=== PATIENT | male | born 1960 | race African-American/Black ===

== ENCOUNTER 2018-05-17 14:06 | Inpatient (IN) | payer MEDICARE, MEDICAID ==
[~2018-05-17 14:06] MED LIST: ISOVUE-370 76%-LOCM 1 ML ONE
[2018-05-17 14:25] LABS: #Basophils 0.1 thou/uL (0.0-0.2); #Lymphocytes 2.6 thou/uL (1.20-3.40); #Monocytes 0.3 thou/uL (0.11-0.59); #Neutrophils 3.4 thou/uL (1.40-6.50); %Eosinophils 0.4 % (0.0-10.0); %Lymphocytes 40.4 % (21.0-51.0); %Monocytes 4.1 % (0.0-10.0); Hemoglobin 13.5 g/dL (14.0-18.0); Mean Corpuscular HGB CONC 30.6 g/dL (32.0-36.0); Mean Corpuscular Hemoglobin 31.5 pg (27.0-31.0); Mean Platelet Volume 9.3 fL (7.4-10.4); Platelet Count 276 thou/uL (130-400); RBC Distribution Width 12.6 % (11.5-14.5); White Blood Cell (WBC) Count 6.3 thou/uL (4.8-10.8)
[2018-05-17 14:36] LABS: Actual Bicarbonate (HCO3a) 24.6 mEq/L (22-28); Analyzer IN Cardio ER; Base Excess (BEa) -2.3 mEq/L (-2.0 to +3.0); CO2 Tension 50.3 mmHg (35.0-45.0); Calcium, Ionized 1.27 mmol/L (1.12-1.30); Carboxyhemoglobin (COHb) 0.4 gm% (0.0-3.0); Hemoglobin (Hb) 14.3 g/dL (14.0-18.0); O2 Tension (PaO2) 93.8 mmHg (80.0-100.0); Potassium - ABG Lab 3.11 mmol/L (3.70-5.30); pH, Arterial 7.31 (7.35-7.45)
[2018-05-17 14:37] LABS: Acetaminophen Less than 6.0 mcg/mL (10.0-30.0); Alcohol Less than 10 mg/dL (Less than 10); Salicylate Less than 8.0 mg/dL (15.0-30.0)
[2018-05-17 14:38] LABS: ALT (SGPT) 96 U/L (8-55); AST (SGOT) 112 U/L (5-34); Albumin 3.6 g/dL (3.5-5.0); Alkaline Phosphatase 124 U/L (40-150); Anion Gap 16 mmol/L (10-20); BUN (Urea Nitrogen) 34 mg/dL (8.4-25.7); Bilirubin, Total 1.8 mg/dL (0.2-1.2); Calc. Creatinine Clearance 0 mL/min (70-130); Calcium 9.3 mg/dL (7.8-10.44); Carbon Dioxide 22 mmol/L (22-29); Chloride 121 mmol/L (98-107); Estimated GFR-MDRD 87; Globulin 4.4 g/dL (2.4-3.5); Glucose 176 mg/dL (70-105); Potassium 3.4 mmol/L (3.5-5.1); Sodium 156 mmol/L (136-145)
[2018-05-17 14:42] LABS: CKMB 1.2 ng/mL (0-6.6); Troponin I Less than 0.010 ng/mL (< 0.028)
[2018-05-17 14:45] LABS: Bilirubin Small (Negative); Blood, Urine Negative (Negative); Clarity CLEAR (Clear); Glucose, Urine (Dipstick) Negative (Negative); Leukocyte Moderate (Negative); Nitrite Positive (Negative); Protein, Urine (Dipstick) Negative (Neg-Trace); Specific Gravity, Urine 1.024 (1.002-1.036)
[2018-05-17 14:49] LABS: Bacteria/HPF 4+ HPF (None Seen); Hyaline Casts/LPF 0-3 HYALINE CAST LPF (0-3 Hyaline); Pathc Cast-AUWi Flag 0.14 (0-2.49); RBC/HPF 0-3 HPF (0-3); Squamous Epithelial 0-3 HPF (0-3)
[2018-05-17 14:50] LABS: ALV-art Gradient 199.825 (0-20); Puncture Site LB
[2018-05-17 15:00] LABS: Amphetamine Not Detected (NotDetected); Barbiturates Screen Not Detected (NotDetected); Benzodiazepine Screen Not Detected (NotDetected); Cocaine Metabolite Screen Not Detected (NotDetected); Medtox Control Line Valid? VALID (VALID); Medtox Reader # READER 4; Methadone Not Detected (NotDetected); Methamphetamine Not Detected (NotDetected); Opiate Screen Not Detected (NotDetected); Oxycodone Screen Not Detected (NotDetected); Phencyclidine (PCP) Not Detected (NotDetected); THC/Cannabinoid Screen Not Detected (NotDetected); Tricyclic Screen Not Detected (NotDetected)
[2018-05-17 15:07] LABS: Transitional Epithelial 0-3 HPF (0-3)
[2018-05-17] MEDS ORDERED: Piperacillin/Tazobactam 4.5 GM VIAL ONE (15:14)
--- NOTE | 2018-05-17 15:23 | RAD ---
1 VIEW CHEST: Date: 05/17/18 COMPARISON: 04/29/18. HISTORY: Agonal respirations. Respiratory failure. FINDINGS: Endotracheal tube terminates just beyond the clavicles. Normal cardiac silhouette. Pulmonary vessels and hilum are normal. Costophrenic angles are clear. No pneumothorax on this supine projection. No os seous abnormalities. IMPRESSION: Endotracheal tube extending just beyond the clavicles. No acute cardiopulmonary process. POS: [facility]
--- NOTE | 2018-05-17 15:50 | RAD ---
CHEST 1 VIEW: Date: 05/17/18 HISTORY: Cough. COMPARISON: Radiograph same date. FINDINGS: The patient is intubated with endotracheal tube tip in a similar location. Enteric tube is in place, which is below the diaphragm, though out of field of view. No pneumothorax. No large effusions. IMPRESSION: Interval placement of enteric tube with tip below diaphragm, although out of field of view. POS: [facility]
[2018-05-17] MEDS ORDERED: Propofol 1,000 MG/100 ML VIAL IV ONE (16:06)
--- NOTE | 2018-05-17 16:19 | CT ---
CONTRAST ENHANCED CTA CHEST: HISTORY: Apneic episode. Tachycardia. TECHNIQUE: A contrast enhanced CTA chest was performed, and 2D and 3D reconstructed images were performed on an independent 3D work station. FINDINGS: Nasogastric tube is in place, coiled within the gastric lumen. The patient has a gastrostomy tube in place. There are diffuse air space opacities, predominantly in the lower lobes, and central lung lesions, as well as in the right upper lobe and right middle lobe, as well as mildly in the left upper lobe. Th david areas are concerning for possible bilateral pneumonia versus pulmonary edema. The patient is intubated. Endotracheal tube is in good position. The right and left bronchi are unr emarkable. IMPRESSION: Diffuse air space opacities, most pronounced in the lung bases. POS: [facility]
--- NOTE | 2018-05-17 16:26 | CT ---
NONCONTRAST HEAD CT: Date: 05/17/18 COMPARISON: 03/04/18. HISTORY: Unresponsive patient. FINDINGS: No parenchymal hemorrhage. No extra-axial hematoma. No midline shift. Basilar cisterns are patent. St able configuration of ventricular system. White matter hypodensities and chronic small vessel ischemi c changes are identified. Stable hypoattenuation involving the right cerebellar hemisphere due to malacic and gliotic change. F indings are similar to the previous examination. Calvarium is intact. Adequate aeration of the sinuses and mastoid air cells. Stable surgical changes in the left orbit. IMPRESSION: No acute intracranial process. POS: [facility]
[2018-05-17] MEDS ORDERED: hydrALAZINE 20 MG/ML VIAL SLOW IVP SCH (16:30)
[2018-05-17] MEDS ORDERED: Ventilator Sedation Protocol 1 EACH FS SCH (18:34)
[2018-05-17] MEDS ORDERED: CCU Electrolyte Replacement 1 EACH FS SCH (18:34)
[2018-05-17] MEDS ORDERED: Fentanyl BOLUS 250 ML IVPB PRN (18:44)
[2018-05-17] MEDS ORDERED: fentaNYL Citrate/PF 2,000 MCG in Sodium Chloride 0.9% 60 ML IV SCH (18:44)
[2018-05-17] MEDS ORDERED: Propofol BOLUS 1,000 MG/100 ML VIAL IV PRN (18:44)
[2018-05-17] MEDS ORDERED: Magnesium 2 GM/NS 0.9% 100 ML 2 GM in Premix Bag 1 BAG IVPB PRN (18:44)
[2018-05-17] MEDS ORDERED: Potassium Phosphate 15 MMOL in Sodium Chloride 0.9% 250 ML 250 ML IV PRN (18:44)
[2018-05-17] MEDS ORDERED: Potassium Chloride 40 MEQ in Premix Bag 1 BAG IVPB PRN (18:44)
[2018-05-17] MEDS ORDERED: CCU ELECTROLYTE REPLACEMENT PROTOCOL FS PRN (18:44)
[2018-05-17] MEDS ORDERED: DISCONTINUE PREVIOUS NARCOTIC PAIN MEDICATIONS AND BENZODIAZEPINES FS SCH (18:44)
[2018-05-17] MEDS ORDERED: Potassium Phosphate 12 MMOL in Sodium Chloride 0.9% 250 ML 250 ML IV PRN (18:44)
[2018-05-17] MEDS ORDERED: Lorazepam 2 MG/ML VIAL SLOW IVP PRN (18:44)
[2018-05-17] MEDS ORDERED: Potassium Chloride 20 MEQ TAB PO PRN (18:44)
[2018-05-17] MEDS ORDERED: Magnesium Oxide 400 MG TAB PO PRN ×2 (18:44)
[2018-05-17] MEDS ORDERED: Potassium Phosphate 9 MMOL in Sodium Chloride 0.9% 100 ML IVPB PRN (18:44)
[2018-05-17] MEDS ORDERED: Potassium Chloride 40 MEQ in Sodium Chloride 0.9% 250 ML 250 ML IVPB PRN (18:44)
[2018-05-17] MEDS ORDERED: Ondansetron PF 4 MG/2 ML Vial IVP PRN (18:46)
[2018-05-17] MEDS ORDERED: Acetaminophen 325 MG TAB PO PRN (18:46)
[2018-05-17] MEDS ORDERED: HYDROcodone/Acetaminophen 5/325 mg Tablet PO PRN ×2 (18:46)
[2018-05-17] MEDS ORDERED: Ondansetron ODT 4 MG TAB SL PRN (18:46)
[2018-05-17] MEDS ORDERED: hydrALAZINE 20 MG/ML VIAL SLOW IVP PRN (18:58)
[2018-05-17] MEDS ORDERED: GENTAMICIN SULFATE IVPB SCH (19:00)
[2018-05-17] MEDS ORDERED: SODIUM CHLORIDE 0.9% IVPB SCH (19:00)
[2018-05-17 19:15] VITALS: BMI 13.7
[2018-05-17] MEDS: Sodium Chloride 0.45% 1,000 ML IV SCH (19:29)
[2018-05-17] MEDS: cefTRIAXone\\ROCEPHIN 2 GM in Sodium Chloride 0.9% 100 ML IVPB SCH (21:05)
[2018-05-17] MEDS: Propofol 1,000 MG/100 ML VIAL IV PRN (23:48)
--- NOTE | 2018-05-18 00:27 | HP ---
DATE OF ADMISSION: 05/17/2018 REASON/CHIEF COMPLAINT: Respiratory distress, not responding well. HISTORY OF PRESENT ILLNESS: Mr. Ge is a 57-year-old -[place] male with past medical history of cerebral hemorrhage, hydrocephalus, dysphagia, has been sick for couple of days ago into the family. The patient has been having some cough, congestion for 2 days and he developed loose stools like watery stools like diarrhea today many times. He has been feeling very weak as well. The patient has not been eating well also for the last few days. He has been taking his medications. He did not complain of any chest pain or nausea or vomiting according to the family, but patient was feeling very weak and lethargic, so patient's family called EMS. EMS found the patient with respiratory distress with possible agonal breathing. He was intubated and brought to the emergency room. In the ER, patient was found to have possible urosepsis. He received Zosyn and vancomycin, received IV fluid bolus as well as hydralazine for hypertension. Currently, patient is intubated and sedated. No history could be obtained from the patient, he is being admitted to CCU. PAST MEDICAL HISTORY: 1. Recent cerebral hemorrhage. 2. History of hydrocephalus. 3. Hypertension. 4. Hyperlipidemia. 5. Chronic anemia. 6. Protein-calorie malnutrition. 7. History of dysphagia, status post PEG tube placement. CURRENT MEDICATIONS: The patient is on mirtazapine 15 mg daily, lisinopril 20 mg b.i.d., Protonix 40 mg daily, hydralazine 50 mg 3 times daily. ALLERGIES: No known drug allergies. FAMILY HISTORY: Nothing of interest. SOCIAL HISTORY: The patient lives with family and no history of smoking. No history of alcohol. REVIEW OF SYSTEMS: Unable to obtain because of mental status. PHYSICAL EXAMINATION: GENERAL: The patient is sedated and intubated. VITAL SIGNS: Temperature 98, pulse 76, blood pressure 150/100 HEENT: Pupils are equal and reactive to light. LUNGS: Air entry present bilaterally. Rhonchi present bilaterally. CARDIAC: S1, S2 regular. ABDOMEN: Soft, no distention, no tenderness. Normal bowel sounds. RECTAL: Deferred. CENTRAL NERVOUS SYSTEM: No focal deficit. LABORATORY DATA AND X-RAY FINDINGS: CBC shows WBC 6.2, hemoglobin 13, hematocrit 44, platelets 276. Metabolic panel: Sodium 156, potassium 3.4, chloride 121, CO2 of 22, BUN 34, creatinine 1, glucose 176. Lactic acid 4.5. Urinalysis revealed wbc 7-10, bacteria 4+. ABG showed a pH of 7.31, pO2 of 93, saturation 96%. IMAGING: Chest x-ray negative. CT of the brain, no acute intracranial process seen. CT chest showed diffuse airspace opacities. EKG showed sinus tachycardia , no acute ST-T wave changes seen. ASSESSMENT: 1. Acute respiratory failure. 2. Possible urosepsis. 3. Hypertension, uncontrolled. 4. Acute metabolic encephalopathy. 5. History of cerebral hemorrhage. 6. History of dysphagia, status post PEG tube placement. 7. Chronic anemia. PLAN: 1. CCU monitoring. 2. Sedation protocol. 3. Ventilator support. 4. Protonix 40 mg IV piggyback daily. 5. Lovenox 40 mg subcutaneous daily. 6. Rocephin 2 grams IV piggyback daily. 7. Vancomycin 1 gram IV piggyback for two hours. 8. Diet n.p.o. 9. Pulmonary consult. 10. Condition: Critical. 11. Prognosis: Guarded. MTDD
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
[2018-05-18] MEDS: Sodium Chloride 0.45% 1,000 ML IV SCH ×3 (01:29→15:13)
[2018-05-18 06:23] LABS: Band 43 % (5-11); Hemoglobin 12.1 g/dL (14.0-18.0); Lymphocytes 8 % (21-51); MDiff Complete? YES; Mean Corpuscular HGB CONC 31.1 g/dL (32.0-36.0); Mean Corpuscular Hemoglobin 31.3 pg (27.0-31.0); Monocytes 3 % (0-10); Neutrophil 46 % (42-75); PLT Morphology Comment Appears Adequate; Platelet Count 180 thou/uL (130-400); RBC Distribution Width 12.8 % (11.5-14.5); Red Blood Cell (RBC) Count 3.85 mill/uL (4.70-6.10); Reflex for Review?? NO
[2018-05-18 06:46] LABS: BUN (Urea Nitrogen) 23 mg/dL (8.4-25.7); Calc. Creatinine Clearance 61 mL/min (70-130); Calcium 8.4 mg/dL (7.8-10.44); Carbon Dioxide 19 mmol/L (22-29); Chloride 119 mmol/L (98-107); Estimated GFR-MDRD Greater than 90; Glucose 124 mg/dL (70-105); Potassium 3.4 mmol/L (3.5-5.1); Sodium 149 mmol/L (136-145)
[2018-05-18 06:52] LABS: Anion Gap 14 mmol/L (10-20)
[2018-05-18 07:45] LABS: Base Excess (BEa) 2.1 mEq/L (-2.0 to +3.0); CO2 Tension 29.2 mmHg (35.0-45.0); Calcium, Ionized 1.12 mmol/L (1.12-1.30); Carboxyhemoglobin (COHb) 0.9 gm% (0.0-3.0); O2 Tension (PaO2) 92.4 mmHg (80.0-100.0); Potassium - ABG Lab 2.95 mmol/L (3.70-5.30); pH, Arterial 7.53 (7.35-7.45)
[2018-05-18 07:46] LABS: Puncture Site RR
--- NOTE | 2018-05-18 09:39 | RAD ---
PORTABLE CHEST: History: Ventilator and ICU follow up. Comparison: 05-17-18 FINDINGS: There are new bibasilar confluent infiltrates compared to yesterday. Heart and mediastinum are unrema rkable. ET and NG tube are unremarkable and unchanged. IMPRESSION: Lower lobe infiltrates seen bilaterally. POS: [facility]
[2018-05-18] MEDS: Pantoprazole 40 MG VIAL IVP SCH (10:06)
[2018-05-18] MEDS: Enoxaparin Sodium 40 MG/0.4 ML SYRINGE SC SCH (10:06)
--- NOTE | 2018-05-18 10:10 | PRG ---
DATE OF SERVICE: 05/18/2018 Thirty-five minutes critical care time. SUBJECTIVE: The patient remains intubated on mechanical ventilation. He will wake up and follow com mands for me. PHYSICAL EXAMINATION: VITAL SIGNS: His temperature is 98.3, pulse 71, blood pressure 149/104. A 24-hour intake 1515 and o utput 585. HEENT EXAM: Remarkable for bitemporal wasting. NECK: No JVD. LUNGS: Clear anteriorly. CARDIOVASCULAR: S1 and S2, regular, without murmur. ABDOMEN: Soft and nontender. EXTREMITIES: No edema. LABORATORY DATA: A pH 7.53, pCO2 of 29, pO2 of 92 on SIMV rate 20, tidal volume 400, PEEP 5, pressur e support 10, FiO2 40%. White blood cell count 14, hematocrit 38.8, platelet count 180. Sodium 149, potassium 3.4, chloride 119, CO2 of 19, BUN 23, creatinine 0.7, glucose 124. Chest x-ray shows bila teral lower lobe infiltrates. ASSESSMENT: 1. Acute respiratory failure, requiring mechanical ventilation. 2. Bilateral pneumonia. 3. Volume contraction. 4. Hypernatremia, secondary to volume contraction. PLAN: 1. Adjust mechanical ventilation rate. 2. Continue IV antibiotics until cultures have resulted. Right now, gram-negative rods are coming f rom his urine. 3. Continue IV fluids.
--- NOTE | 2018-05-18 12:20 | PQF ---
LEXIE TABOR VENKAT R MD [id number] CLINICAL DOCUMENTATION IMPROVEMENT CLARIFICATION FORM: ICD-10 Updated PLEASE DO AN ADDENDUM TO THE PROGRESS NOTE WITH ANY DOCUMENTATION UPDATES OR ADDITIONS AND CARRY THROUGH TO DC SUMMARY. THANK YOU. DATE: 05/18/18 ATTN: DR. BHATTI Please exercise your independent, professional judgment in responding to the clarification form. Clinical indicators are provided on the bottom of this form for your review Please check appropriate box(es): [ ] Severe sepsis with acute organ dysfunction of: acute respiratory failure, acute metabolic encephalopathy [ ] Sepsis due to: UTI [ ] Sepsis due to pneumonia [ ] Sepsis due to [ ] Localized infection without sepsis [ ] Other diagnosis [ y] Unable to determine In addition, please specify: Present on Admission (POA): [ y ] Yes [ ] No [ ] Unable to determine For continuity of documentation, please document condition throughout progress notes and discharge summary. Thank You. CLINICAL INDICATORS - SIGNS / SYMPTOMS / LABS LACTIC ACID 4.5 05/17 LAB WBC 14 05/18 LAB AMS-H&P: ACUTE RESP FAILURE, POSSIBLE UROSEPSIS. HTN UNCONTROLLED. ACUTE METABOLIC ENCEPHALOPATHY GRAM NEG RODS URINE 05/18 PULM NOTE UA 05/17 MOD LEUKEST, WBC 7-10, POSITIVE NITRATES, 4+ BACTERIA PER LAB PULSE 130 05/17 VS RISK FACTORS POSSIBLE UROSEPSIS H&P BILATERAL PNEUMONIA 05/18 PULM NOTE TREATMENTS: CCU ADMIT ORDERS DAILY CBC 05/17 TO DATE ORDERS URINE CULTURE 05/17 ORDERS PULM CONSULT 05/17 ORDERS VANC AND ROCEPHIN IV 05/17 IVFS 2 LITERS NS BOLUS IN ED THEN IVFS TO 1/2 NS AT 150 05/17 (This form is maintained as a part of the permanent medical record) 2014 [employer]. All Rights Reserved Jeanette Trujillo, RN, BSN, CCDS [email or web address] [phone] [facility]
[2018-05-18] MEDS: Propofol 1,000 MG/100 ML VIAL IV PRN (15:11)
[2018-05-18] MEDS ORDERED: Vancomycin HCl 750 MG in Sodium Chloride 0.9% 250 ML 250 ML IVPB SCH (16:00)
[2018-05-18] MEDS ORDERED: Pancrelipase DR 12000 1 CAP FS PRN (17:19)
[2018-05-18] MEDS ORDERED: Sodium Bicarbonate Tab 325 MG TAB PER TUBE PRN (17:19)
[2018-05-18] MEDS: cefTRIAXone\\ROCEPHIN 2 GM in Sodium Chloride 0.9% 100 ML IVPB SCH (20:51)
[2018-05-19] MEDS: Sodium Chloride 0.45% 1,000 ML IV SCH ×4 (00:38→20:37)
[2018-05-19 04:18] LABS: #Basophils 0.1 thou/uL (0.0-0.2); #Lymphocytes 1.8 thou/uL (1.20-3.40); #Monocytes 0.5 thou/uL (0.11-0.59); #Neutrophils 11.9 thou/uL (1.40-6.50); %Basophils 0.4 % (0.0-1.0); %Eosinophils 0.3 % (0.0-10.0); %Lymphocytes 12.6 % (21.0-51.0); %Monocytes 3.3 % (0.0-10.0); %Neutrophils 83.4 % (42.0-75.0); Hemoglobin 10.9 g/dL (14.0-18.0); Mean Corpuscular HGB CONC 31.7 g/dL (32.0-36.0); Mean Corpuscular Hemoglobin 31.5 pg (27.0-31.0); Mean Corpuscular Volume 99.3 fL (78.0-98.0); Mean Platelet Volume 9.5 fL (7.4-10.4); Platelet Count 157 thou/uL (130-400); RBC Distribution Width 12.5 % (11.5-14.5); Red Blood Cell (RBC) Count 3.45 mill/uL (4.70-6.10); White Blood Cell (WBC) Count 14.2 thou/uL (4.8-10.8)
[2018-05-19 04:37] LABS: Anion Gap 9 mmol/L (10-20); BUN (Urea Nitrogen) 19 mg/dL (8.4-25.7); Calc. Creatinine Clearance 63 mL/min (70-130); Calcium 8.6 mg/dL (7.8-10.44); Carbon Dioxide 24 mmol/L (22-29); Chloride 112 mmol/L (98-107); Estimated GFR-MDRD Greater than 90; Glucose 88 mg/dL (70-105); Sodium 142 mmol/L (136-145)
[2018-05-19 04:42] LABS: Potassium 2.9 mmol/L (3.5-5.1)
[2018-05-19 06:20] LABS: Actual Bicarbonate (HCO3a) 21.7 mEq/L (22-28); Base Excess (BEa) -2.8 mEq/L (-2.0 to +3.0); CO2 Tension 36.6 mmHg (35.0-45.0); Carboxyhemoglobin (COHb) 0.5 gm% (0.0-3.0); Hemoglobin (Hb) 11.4 g/dL (14.0-18.0); O2 Tension (PaO2) 152.5 mmHg (80.0-100.0); Potassium - ABG Lab 3.68 mmol/L (3.70-5.30); pH, Arterial 7.39 (7.35-7.45)
[2018-05-19 06:22] LABS: Puncture Site RRA
--- NOTE | 2018-05-19 08:06 | PRG ---
DATE OF SERVICE: 05/19/2018 Thirty-five minutes critical care time. The patient remains intubated on mechanical ventilation. There have been no changes in his condition overnight. PHYSICAL EXAMINATION: VITAL SIGNS: His temperature is 98.8, pulse 82, blood pressure 163/109, 24 hour intake 4114, output 1020. HEENT: Pupils react. Sclerae icteric. Oropharynx clear. NECK: No JVD. LUNGS: Fairly clear. CARDIAC: S1 and S2 regular. ABDOMEN: Soft. PEG tube noted. EXTREMITIES: Severe muscle wasting. LABORATORY DATA: White blood cell count 14.2, hematocrit 34.3, platelet count 157, pH 7.39, pCO2 36, pO2 150 on SIMV rate 12, tidal volume 400, PEEP 5, pressure support 10, FiO2 40%. Sodium 142, potas sium 2.9, chloride 112, CO2 24, BUN 19, creatinine 0.7, glucose 88. Urine culture showed Citrobacter koseri, it is sensitive to the ceftriaxone. ASSESSMENT: 1. Urosepsis secondary to Citrobacter. 2. Acute respiratory failure requiring mechanical ventilation. 3. Bilateral pneumonia. 4. Volume contraction. 5. Hypokalemia. PLAN: 1. Replace potassium. 2. Spontaneous breathing trial. 3. Minimize sedation with hopeful extubation later today.
--- NOTE | 2018-05-19 08:58 | RAD ---
AP VIEW CHEST: HISTORY: Ventilator-dependent patient. FINDINGS: AP view chest obtained on 05/19/2018. Comparison is made to a previous exam from 05/18/2018. AP view chest demonstrates nasogastric and endotracheal tubes to be in place. Bilateral lung base airspace opacities seen, worse in the right lung base than on the left. These ap pear to be slightly less pronounced than on the previous day's exam. No evidence of pneumothorax is seen. IMPRESSION: Continued bibasilar airspace opacity slightly improved since the previous exam. Endotracheal and erik ogastric tubes are in good position. POS: [facility]
[2018-05-19] MEDS: Pantoprazole 40 MG VIAL IVP SCH (09:56)
[2018-05-19] MEDS: Enoxaparin Sodium 40 MG/0.4 ML SYRINGE SC SCH (09:56)
[2018-05-19 10:33] LABS: Potassium 3.4 mmol/L (3.5-5.1)
[2018-05-19] MEDS: hydrALAZINE 25 MG TAB PER TUBE SCH (20:36)
[2018-05-19] MEDS: cefTRIAXone\\ROCEPHIN 2 GM in Sodium Chloride 0.9% 100 ML IVPB SCH (20:37)
[2018-05-19] MEDS ORDERED: Acetaminophen 650 MG/20.3 ML UDCUP PER TUBE PRN (20:58)
[2018-05-20 05:09] LABS: #Lymphocytes 1.2 thou/uL (1.20-3.40); #Monocytes 0.4 thou/uL (0.11-0.59); #Neutrophils 6.9 thou/uL (1.40-6.50); %Eosinophils 0.3 % (0.0-10.0); %Lymphocytes 14.2 % (21.0-51.0); %Neutrophils 80.5 % (42.0-75.0); Hemoglobin 11.4 g/dL (14.0-18.0); Mean Corpuscular HGB CONC 31.8 g/dL (32.0-36.0); Mean Corpuscular Hemoglobin 31.2 pg (27.0-31.0); Mean Corpuscular Volume 98.2 fL (78.0-98.0); Mean Platelet Volume 9.6 fL (7.4-10.4); Platelet Count 137 thou/uL (130-400); RBC Distribution Width 12.4 % (11.5-14.5); Red Blood Cell (RBC) Count 3.65 mill/uL (4.70-6.10); White Blood Cell (WBC) Count 8.6 thou/uL (4.8-10.8)
[2018-05-20] MEDS: Sodium Chloride 0.45% 1,000 ML IV SCH ×2 (05:16→08:53)
[2018-05-20 05:43] LABS: Anion Gap 8 mmol/L (10-20); BUN (Urea Nitrogen) 13 mg/dL (8.4-25.7); Calc. Creatinine Clearance 68 mL/min (70-130); Calcium 8.5 mg/dL (7.8-10.44); Carbon Dioxide 28 mmol/L (22-29); Chloride 111 mmol/L (98-107); Estimated GFR-MDRD Greater than 90; Glucose 95 mg/dL (70-105); Magnesium 1.5 mg/dL (1.6-2.6); Phosphorus 2.2 mg/dL (2.3-4.7); Potassium 3.6 mmol/L (3.5-5.1); Sodium 143 mmol/L (136-145)
--- NOTE | 2018-05-20 07:54 | PRG ---
DATE OF SERVICE: 05/20/2018 Mr. Ge was successfully extubated yesterday. He has had no acute problems overnight. PHYSICAL EXAMINATION: VITAL SIGNS: Temperature 97.5, pulse 89, blood pressure 149/99. 24 hour intake 4835, output 4965. HEENT: Unremarkable. NECK: No adenopathy, JVD, or bruits. LUNGS: Clear. CARDIOVASCULAR: S1, S2 regular. ABDOMEN: Soft, nontender. PEG tube noted. EXTREMITIES: No edema. LABORATORY DATA: Sodium 143, potassium 3.6, chloride 111, CO2 28, BUN 13, creatinine 0.6, glucose 95 . White blood cell count 8.6, hematocrit 35.8, platelet count 137. ASSESSMENT: 1. Urosepsis. 2. Status post acute respiratory failure requiring mechanical ventilation. 3. Protein calorie malnutrition. 4. Hypernatremia, which is improved. PLAN: The patient can be transferred out to the medical floor for further antibiotic therapy. He is receiving tube feeds. I will go ahead and stop his IV fluids.
[2018-05-20] MEDS: Pantoprazole 40 MG VIAL IVP SCH (08:45)
[2018-05-20] MEDS: Enoxaparin Sodium 40 MG/0.4 ML SYRINGE SC SCH (08:45)
[2018-05-20] MEDS: hydrALAZINE 25 MG TAB PER TUBE SCH ×2 (08:45→20:11)
--- NOTE | 2018-05-20 09:47 | PQF ---
CLINICAL DOCUMENTATION IMPROVEMENT CLARIFICATION FORM: ICD-10 Updated PLEASE DO AN ADDENDUM TO THE PROGRESS NOTE WITH ANY DOCUMENTATION UPDATES OR ADDITIONS AND CARRY THROUGH TO DC SUMMARY. THANK YOU. Date: 05/20 ATTN : DR. Bertram BHATTI Please exercise your independent, professional judgment in responding to the clarification form. 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 ASSESSMENT 05/18: SEVERE MUSCLE WASTING NOTED: MALNUTRITION, PATIENT LIKELY MEETING LESS THAN NEEDS FOR MONTHS & BMI 13.7; INABILITY TO CONSUME SUFFICIENT ENERGY RISK FACTORS: HX MALNUTRITION PEG TUBE TREATMENT: MUSICAL INSTRUMENT MECHANIC ASSESSMENT Moderate Malnutrition (in acute illness) Energy Intake: <75% of estimated energy requirement for > 7 days Weight Loss: 1-2%/1 week; 5%/ 1 month; 7.5%/3 months Other: mild body fat loss; mild muscle mass loss; mild fluid accumulation; Severe Malnutrition (in acute illness) Energy Intake: < 50% of estimated energy requirement for > 5 days Weight Loss: >1-2%/1 week; >5%/1 month; >7.5%/3 months Other: moderate body fat loss; moderate muscle mass loss; moderate- severe fluid accumulation; 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 Leticia (This form is maintained as a part of the permanent medical record) 2014 [employer]. All Rights Reserved Leticia Ttae RN, BSN [email or web address] Office: [phone] [facility]
--- NOTE | 2018-05-20 11:02 | RAD ---
PORTABLE CHEST: HISTORY: Respiratory distress. COMPARISON: Prior day's exam. FINDINGS: Endotracheal and NG tubes have been removed. The parenchymal changes in the right base are similar t o the prior examination. There are also changes in the left base, which may be slightly worsened, as compared to the prior exam. IMPRESSION: Bibasilar lung changes. Some of the changes in the left base appear slightly increased. POS: [facility]
[2018-05-20] MEDS ORDERED: Senokot 8.6 MG TAB PER TUBE PRN (19:07)
[2018-05-20] MEDS: cefTRIAXone\\ROCEPHIN 2 GM in Sodium Chloride 0.9% 100 ML IVPB SCH (20:10)
[2018-05-21 06:25] LABS: Anion Gap 10 mmol/L (10-20); BUN (Urea Nitrogen) 12 mg/dL (8.4-25.7); Calc. Creatinine Clearance 79 mL/min (70-130); Calcium 8.4 mg/dL (7.8-10.44); Carbon Dioxide 26 mmol/L (22-29); Chloride 108 mmol/L (98-107); Estimated GFR-MDRD Greater than 90; Glucose 98 mg/dL (70-105); Potassium 3.4 mmol/L (3.5-5.1); Sodium 141 mmol/L (136-145)
[2018-05-21] MEDS: Pantoprazole 40 MG GRANULES PACKET PER TUBE SCH (08:35)
[2018-05-21] MEDS: Cyanocobalamin (Vitamin B-12) 1,000 MCG TAB PER TUBE SCH (08:35)
[2018-05-21] MEDS: hydrALAZINE 25 MG TAB PER TUBE SCH ×2 (08:35→19:50)
[2018-05-21] MEDS: Enoxaparin Sodium 40 MG/0.4 ML SYRINGE SC SCH (08:36)
--- NOTE | 2018-05-21 11:21 | PRG ---
DATE OF SERVICE: 05/21/2018 Mr. Ge is talkative. He seems to be doing well, he had no complaints. PHYSICAL EXAMINATION: VITAL SIGNS: Temperature 98.0, pulse 102, respirations 18, O2 sat 96% on room air, blood pressure 14 0/86. HEENT: Unremarkable. CHEST: Clear. CARDIAC: S1, S2 regular. ABDOMEN: Soft. EXTREMITIES: No edema. LABORATORY DATA: Sodium 141, potassium 3.4, BUN 12, creatinine 0.5, glucose 98. ASSESSMENT: 1. Urosepsis. 2. Status post acute respiratory failure. 3. Stable pulmonary status. PLAN: Continuing antibiotic therapy. Hopefully, he can go back home soon.
[2018-05-21] MEDS: cefTRIAXone\\ROCEPHIN 2 GM in Sodium Chloride 0.9% 100 ML IVPB SCH (19:49)
[2018-05-22] MEDS: hydrALAZINE 25 MG TAB PER TUBE SCH ×2 (08:31→20:16)
[2018-05-22] MEDS: Pantoprazole 40 MG GRANULES PACKET PER TUBE SCH (08:32)
[2018-05-22] MEDS: Cyanocobalamin (Vitamin B-12) 1,000 MCG TAB PER TUBE SCH (08:32)
[2018-05-22] MEDS: Enoxaparin Sodium 40 MG/0.4 ML SYRINGE SC SCH (08:32)
--- NOTE | 2018-05-22 11:53 | PRG ---
DATE OF SERVICE: 05/22/2018 SUBJECTIVE: The patient states that he is doing well. He had no complaints. PHYSICAL EXAMINATION: VITAL SIGNS: Temperature is 97.7, pulse 92, blood pressure 168/114, O2 sat 97%. HEENT: Unremarkable. NECK: No JVD. LUNGS: Fairly clear. CARDIAC: S1 and S2, regular. ABDOMEN: Soft. EXTREMITIES: No edema. ASSESSMENT: 1. Status post acute respiratory failure. 2. Urosepsis, which appears to be improving. PLAN: I think the patient could go back to the longterm on antibiotics through his feeding tube. I think he can be discharged as soon as today. No further pulmonary recommendations. Please recal l if further assistance needed.
--- NOTE | 2018-05-22 16:57 | PRG ---
DATE OF SERVICE: 05/22/2018 Mr. Ge is a 57-year-old black male with known history of status post cerebrovascular accident and initially admitted on May 17, 2018 due to respiratory distress. He has been evaluated and manag ed by Pulmonary. He is much improved from his respiratory failure. In addition, he has urosepsis an d is also clinically much improved. This afternoon, he voices no new complaints. He is somewhat dys arthric. He denies any chest pain or shortness of breath. He is here with his sister. PHYSICAL EXAMINATION: VITAL SIGNS: Blood pressure is 168/114, heart rate 92, respiratory rate 16, temperature 97. GENERAL: Noted to be awake, alert, comfortable, not in distress. SKIN: Adequate turgor. HEENT: Pinkish conjunctivae, anicteric sclerae. NECK: No neck mass, no carotid bruits, no JVD. CHEST: No deformities. LUNGS: Clear breath sounds. HEART: Normal sinus rhythm. No murmur, no gallops. No rub. ABDOMEN: Globular, soft. Positive for PEG tube. EXTREMITIES: No edema. NEUROLOGIC: Dysarthric, decreased motor strength. MEDICATIONS: 05/22/2018 was reviewed. LABORATORY DATA: On 05/20/2018. White count 8.6, hemoglobin 11.4, sodium 141, potassium 3.4. On . Sodium 141, potassium 3.4, chloride 108, carbon dioxide 26, BUN 12, creatinine 0.57, calci um 8.4. ASSESSMENT AND PLAN: 1. Status post acute respiratory failure, much improved. Pulmonary following. 2. Urinary tract infection/urosepsis - on IV antibiotics. Clinically resolving. 3. Status post cerebrovascular accident. Continue supportive care. 4. Mild hypokalemia. We will recheck potassium in a.m. 5. Hypertension, not in good control. We will increase hydralazine to 50 mg t.i.d. Recheck base met and CBC in a.m. in patient.
[2018-05-22] MEDS: cefTRIAXone\\ROCEPHIN 2 GM in Sodium Chloride 0.9% 100 ML IVPB SCH (20:16)
[2018-05-23 06:47] LABS: #Lymphocytes 1.1 thou/uL (1.20-3.40); #Monocytes 0.3 thou/uL (0.11-0.59); #Neutrophils 1.3 thou/uL (1.40-6.50); %Basophils 0.6 % (0.0-1.0); %Eosinophils 1.3 % (0.0-10.0); %Lymphocytes 40.1 % (21.0-51.0); %Monocytes 11.8 % (0.0-10.0); %Neutrophils 46.2 % (42.0-75.0); Mean Corpuscular HGB CONC 32.3 g/dL (32.0-36.0); Mean Corpuscular Hemoglobin 31.6 pg (27.0-31.0); Mean Corpuscular Volume 97.8 fL (78.0-98.0); Mean Platelet Volume 9.6 fL (7.4-10.4); Platelet Count 216 thou/uL (130-400); RBC Distribution Width 12.2 % (11.5-14.5); Red Blood Cell (RBC) Count 3.81 mill/uL (4.70-6.10); White Blood Cell (WBC) Count 2.8 thou/uL (4.8-10.8)
[2018-05-23 08:21] LABS: Chloride 107 mmol/L (98-107); Potassium 3.8 mmol/L (3.5-5.1); Sodium 141 mmol/L (136-145)
[2018-05-23 08:22] LABS: Calcium 9.1 mg/dL (7.8-10.44); Glucose 110 mg/dL (70-105)
[2018-05-23 08:24] LABS: Anion Gap 11 mmol/L (10-20); Carbon Dioxide 27 mmol/L (22-29)
[2018-05-23 08:25] LABS: Calc. Creatinine Clearance 72 mL/min (70-130); Estimated GFR-MDRD Greater than 90
[2018-05-23 08:26] LABS: BUN (Urea Nitrogen) 14 mg/dL (8.4-25.7)
[2018-05-23] MEDS: Cyanocobalamin (Vitamin B-12) 1,000 MCG TAB PER TUBE SCH (09:04)
[2018-05-23] MEDS: hydrALAZINE 25 MG TAB PER TUBE SCH ×3 (09:04→23:47)
[2018-05-23] MEDS: Enoxaparin Sodium 40 MG/0.4 ML SYRINGE SC SCH (09:04)
[2018-05-23] MEDS: Pantoprazole 40 MG GRANULES PACKET PER TUBE SCH (09:04)
[2018-05-23] MEDS: cefTRIAXone\\ROCEPHIN 2 GM in Sodium Chloride 0.9% 100 ML IVPB SCH (20:38)
[2018-05-24] MEDS: Pantoprazole 40 MG GRANULES PACKET PER TUBE SCH (08:18)
[2018-05-24] MEDS: hydrALAZINE 25 MG TAB PER TUBE SCH ×3 (08:18→21:02)
[2018-05-24] MEDS: Cyanocobalamin (Vitamin B-12) 1,000 MCG TAB PER TUBE SCH (08:19)
[2018-05-24] MEDS: Enoxaparin Sodium 40 MG/0.4 ML SYRINGE SC SCH (08:19)
[2018-05-25 05:20] LABS: Anion Gap 10 mmol/L (10-20); BUN (Urea Nitrogen) 14 mg/dL (8.4-25.7); Calc. Creatinine Clearance 69 mL/min (70-130); Carbon Dioxide 26 mmol/L (22-29); Chloride 107 mmol/L (98-107); Estimated GFR-MDRD Greater than 90; Glucose 107 mg/dL (70-105); Potassium 4.2 mmol/L (3.5-5.1); Sodium 139 mmol/L (136-145)
[2018-05-25 05:25] LABS: Band 5 % (5-11); Hemoglobin 12.1 g/dL (14.0-18.0); Lymphocytes 39 % (21-51); MDiff Complete? YES; Mean Corpuscular HGB CONC 32.5 g/dL (32.0-36.0); Mean Corpuscular Hemoglobin 31.7 pg (27.0-31.0); Mean Corpuscular Volume 97.4 fL (78.0-98.0); Monocytes 15 % (0-10); Neutrophil 39 % (42-75); Platelet Count 249 thou/uL (130-400); RBC Distribution Width 12.1 % (11.5-14.5); Reactive Lymphocytes 2 % (0-10); Red Blood Cell (RBC) Count 3.82 mill/uL (4.70-6.10); White Blood Cell (WBC) Count 3.3 thou/uL (4.8-10.8)
[2018-05-25 07:31] VITALS: BP 142/86; TEMP 98.5
[2018-05-25] MEDS: hydrALAZINE 25 MG TAB PER TUBE SCH (09:00)
[2018-05-25] MEDS ORDERED: Lisinopril 10 MG TAB PER TUBE SCH (09:00)
[2018-05-25] MEDS: Pantoprazole 40 MG GRANULES PACKET PER TUBE SCH (09:00)
[2018-05-25] MEDS: Enoxaparin Sodium 40 MG/0.4 ML SYRINGE SC SCH (09:00)
[2018-05-25] MEDS ORDERED: Tamsulosin HCl 0.4 MG CAP FS SCH (09:00)
[2018-05-25] MEDS: Cyanocobalamin (Vitamin B-12) 1,000 MCG TAB PER TUBE SCH (09:00)
--- NOTE | 2018-05-26 11:23 | DIS ---
DATE OF ADMISSION: 05/17/2018 DATE OF DISCHARGE: 05/25/2018 ADMITTING DIAGNOSES: 1. Acute respiratory failure. 2. Urosepsis. 3. Bilateral pneumonia. 4. Uncontrolled hypertension. 5. Acute metabolic encephalopathy. 6. History of cerebral hemorrhage. 7. History of dysphagia, status post percutaneous endoscopic gastrostomy. 8. Chronic anemia. FINAL DIAGNOSES: 1. Acute respiratory failure, improved. 2. Urosepsis. 3. Acute metabolic encephalopathy, improved. 4. Pneumonia. 5. Protein-calorie malnutrition. 6. Acute kidney injury. 7. Severe hypokalemia, improved. 8. History of cerebral hemorrhage. 9. Dysphagia, status post PEG. BRIEF SUMMARY OF HOSPITAL COURSE: Mr. Ge is a 57-year-old -Stateless male admitted because of respiratory failure, the patient was unresponsive. He was intubated and put on ventilator and admitted to CCU. He had urosepsis and also possible pneumonia. Consultation done with Critical Care, Pulmonary. Patient was seen by Dr. Boykin. His impression was respiratory failure and volume contraction for urosepsis and pneumonia. Patient will monitor in the ICU on ventilator support and given antibiotics and fluids. Patient's blood pressure improved and he was extubated after 3 days. Patient tolerated extubation very well. He was continued on IV antibiotics and continued on tube feeding as well and patient was stable. He was transferred out of ICU to the medical floor, where he was started on physical therapy and continued on tube feeding, continued on the IV antibiotics as well. Patient was unable to ambulate, so he was evaluated for the correction home, where he could have rehab. He is being discharged. At the time of discharge, he was stable. His vital signs were stable. Lungs clear. Heart sounds regular. Abdomen soft, nontender. Bowel sounds present. DISCHARGE MEDICATIONS: Include Symbicort 1 tablet b.i.d., MiraLax 17 g daily, Protonix 40 mg daily, lisinopril 20 mg daily, hydralazine 50 mg t.i.d., folic acid 1 mg daily, vitamin B12 daily, 100 mcg, Flomax 0.4 mg daily, Tylenol p.r.n., DuoNebs q.i.d. p.r.n., levofloxacin 750 daily for 7 days, Slow Mag 400 mg b.i.d., pancrelipase daily, sodium bicarbonate 650 mg daily p.r.n. [facility] and continue tube feeding. MTDD
== END 2018-05-25 13:47 | DRG 208 ==
LOC: EDBD 14:06 → ERS 14:06 → CCU 18:26 → T4-B 05-20 13:08
PROVIDERS: ADMIT Internal Medicine; ATTEND Internal Medicine
PROC: 5A1945Z Respiratory Ventilation, 24-96 Consecutive Hours (ICD-10-PCS; principal; 2018-05-17)
DX: J96.00 Acute respiratory failure, unspecified whether with hypoxia or hypercapnia (principal); G93.41 Metabolic encephalopathy; J18.9 Pneumonia, unspecified organism; N39.0 Urinary tract infection, site not specified; E87.0 Hyperosmolality and hypernatremia; E44.0 Moderate protein-calorie malnutrition; Z68.1 Body mass index [BMI] 19.9 or less, adult; I10 Essential (primary) hypertension; E87.6 Hypokalemia; E11.9 Type 2 diabetes mellitus without complications; J44.9 Chronic obstructive pulmonary disease, unspecified; G80.9 Cerebral palsy, unspecified
CPT/HCPCS: 36415; 36416; 51702; 70450; 71045; 71275; 80048; 80053; 80306; 80307; 81003; 81015; 82553; 82805; 83605; 83735; 84100; 84484; 85025; 87040; 87077; 87086; 87186; 90471; 90686; 93005; 94003; 94640; 96360; 96361; 96365; 96367; 96375; C9113; G0008; G8978-GP-CM; G8979-GP-CL; G8996-GN-CM; G8997-GN-CL; J0360; J0696; J1580; J1650; J2543; J2704; J3370; J7050; J7620

== ENCOUNTER 2018-06-11 17:07 | Inpatient (IN) | payer MEDICARE, MEDICAID ==
[2018-06-11 18:02] LABS: #Lymphocytes 0.9 thou/uL (1.20-3.40); #Monocytes 0.3 thou/uL (0.11-0.59); #Neutrophils 1.4 thou/uL (1.40-6.50); %Basophils 1.7 % (0.0-1.0); %Eosinophils 0.3 % (0.0-10.0); %Lymphocytes 32.8 % (21.0-51.0); %Monocytes 11.1 % (0.0-10.0); %Neutrophils 54.1 % (42.0-75.0); Hemoglobin 12.7 g/dL (14.0-18.0); Mean Corpuscular HGB CONC 31.6 g/dL (32.0-36.0); Mean Corpuscular Hemoglobin 30.9 pg (27.0-31.0); Mean Corpuscular Volume 97.9 fL (78.0-98.0); Platelet Count 210 thou/uL (130-400); RBC Distribution Width 12.4 % (11.5-14.5); Red Blood Cell (RBC) Count 4.11 mill/uL (4.70-6.10); White Blood Cell (WBC) Count 2.6 thou/uL (4.8-10.8)
[2018-06-11 18:19] LABS: ALT (SGPT) 56 U/L (8-55); AST (SGOT) 68 U/L (5-34); Albumin 3.5 g/dL (3.5-5.0); Alkaline Phosphatase 123 U/L (40-150); Anion Gap 15 mmol/L (10-20); BUN (Urea Nitrogen) 16 mg/dL (8.4-25.7); Bilirubin, Total 1.5 mg/dL (0.2-1.2); Calc. Creatinine Clearance 0 mL/min (70-130); Calcium 9.4 mg/dL (7.8-10.44); Carbon Dioxide 22 mmol/L (22-29); Chloride 98 mmol/L (98-107); Estimated GFR-MDRD Greater than 90; Globulin 3.8 g/dL (2.4-3.5); Glucose 130 mg/dL (70-105); Potassium 4.3 mmol/L (3.5-5.1); Protein, Total 7.3 g/dL (6.0-8.3); Sodium 131 mmol/L (136-145)
[2018-06-11 19:05] LABS: Bilirubin Negative (Negative); Blood, Urine Moderate (Negative); Clarity CLOUDY (Clear); Glucose, Urine (Dipstick) Negative (Negative); Leukocyte Trace (Negative); Nitrite Negative (Negative); Protein, Urine (Dipstick) Trace mg/dL (Neg-Trace); Specific Gravity, Urine 1.015 (1.002-1.036)
[2018-06-11 19:07] LABS: Bacteria/HPF None Seen HPF (None Seen); Hyaline Casts/LPF 7-10 HYALINE CAST LPF (0-3 Hyaline); Pathc Cast-AUWi Flag 2.18 (0-2.49); RBC/HPF GREATER THAN 50-TNTC HPF (0-3); Squamous Epithelial 0-3 HPF (0-3); WBC/HPF 0-3 HPF (0-3)
[2018-06-11 19:12] LABS: Renal Epithelial None Seen HPF (0-3); Transitional Epithelial 0-3 HPF (0-3)
[2018-06-11 19:16] LABS: CKMB 2.4 ng/mL (0-6.6); Troponin I Less than 0.010 ng/mL (< 0.028)
--- NOTE | 2018-06-11 20:59 | CT ---
HEAD CT WITHOUT CONTRAST: 06/11/2018 HISTORY: Chest pain and altered mental status. COMPARISON: 06/17/2018 TECHNIQUE: Serial axial CT imaging at 5 mm intervals, from the vertex through the skull base, without contrast. FINDINGS: There is encephalomalacia/volume loss involving the inferior aspect of the right cerebellar hemispher e, stable, suggesting prior insult/infarction. There is periventricular and deep white matter hypode nsity, suggesting small vessel disease, stable as well. There is no intracranial hemorrhage, midline shift, or mass effect. Incompletely imaged postoperative mesh is seen associated with the orbit on the left. The imaged par anasal sinuses and mastoid air cells are well aerated. No displaced calvarial fracture. IMPRESSION: Stable head CT, as detailed above. POS: [facility]
[2018-06-11] MEDS ORDERED: Aspirin 325 MG TAB ONE (21:20)
--- NOTE | 2018-06-11 21:23 | RAD ---
PORTABLE CHEST ONE VIEW: 06/11/18 at 8:26 p.m. HISTORY: Chest pain. FINDINGS: Comparison is made with exam of 05/20/18. The heart size is normal. The lungs are well expanded without focal areas of consolidation, pneumotho races or pleural effusions. IMPRESSION: No radiographic evidence of acute cardiopulmonary process. POS: [facility]
[2018-06-11] MEDS ORDERED: Aspirin 300 MG Suppository ONE (21:36)
[2018-06-11 22:49] LABS: Troponin I Less than 0.010 ng/mL (< 0.028)
[2018-06-11] MEDS ORDERED: Ondansetron PF 4 MG/2 ML Vial IVP PRN (23:39)
[2018-06-11] MEDS ORDERED: Ondansetron ODT 4 MG TAB SL PRN (23:39)
[2018-06-12 02:03] LABS: Troponin I Less than 0.010 ng/mL (< 0.028)
[2018-06-12] MEDS ORDERED: hydrALAZINE 20 MG/ML VIAL SLOW IVP PRN (09:47)
[2018-06-12] MEDS: Dextrose 5 %-0.45 % NaCl 1,000 ML IV SCH (12:15)
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
--- NOTE | 2018-06-12 20:34 | HP ---
DATE OF ADMISSION: 06/12/2018 REASON FOR ADMISSION AND CHIEF COMPLAINT: Seizure episode. HISTORY OF PRESENT ILLNESS: Mr. Ge is a 57-year-old -[place] male with past medical history of cerebral hemorrhage, CVA, and dysphagia, status post PEG without any episode of seizure. According to the family, patient had a seizure lasting about 20 minutes and the patient was stiff after seizure episode and difficulty responding. Also complained of some sharp pain in the chest, so family brought to the emergency room because of some questionable seizure episode. In the ER, the patient was evaluated. He had normal EKG and cardiac enzymes and his CT scan of the brain was unremarkable. So, the patient is given aspirin and admitted for further evaluation of his seizure episode as well as his chest pain. PAST MEDICAL HISTORY: 1. Cerebral hemorrhage. 2. History of hydrocephalus. 3. Hypertension. 4. Hyperlipidemia. 5. Chronic anemia. 6. Protein calorie malnutrition. 7. History of respiratory failure due to pneumonia, urosepsis. 8. History of dysphagia, status post PEG tube placement. CURRENT MEDICATIONS: The patient is on lisinopril 20 mg daily, DuoNebs q.i.d., folic acid daily, ferrous sulfate daily, vitamin B12 daily, Tylenol p.r.n., Flomax 0.4 mg b.i.d., sodium bicarbonate daily, MiraLax daily 17 grams, Protonix 40 mg daily, hydralazine 50 t.i.d. ALLERGIES: No known drug allergies. FAMILY HISTORY: Nothing of interest. SOCIAL HISTORY: The patient lives at home. No history of smoking. No history of alcohol intake. REVIEW OF SYSTEMS: Cardiovascular: No shortness of breath, has some sharp pain , no diaphoresis. Respiratory: No fever or cough. Gastrointestinal: No nausea, vomiting, abdominal pain. Genitourinary: No dysuria or hematuria. Central Nervous System: No headache. PHYSICAL EXAMINATION: GENERAL: The patient is alert, awake, oriented x2. VITAL SIGNS: Temperature 98, pulse 79, respirations 20, blood pressure 120/60. HEENT: Head is normocephalic, atraumatic. Pupils equal and reactive to light. Nasopharynx is pale and dry. Hard and soft palate, no lesions seen. SKIN: Skin turgor decreased. NECK: Supple. No JVD. LUNGS: Breath sounds diminished bilaterally. Percussion not dull bilaterally. No rales, no rhonchi. CARDIAC: S1, S2 regular. ABDOMEN: Soft, no distention, no tenderness. PEG tube in place. CENTRAL NERVOUS SYSTEM: No new deficits. LABORATORY AND X-RAY FINDINGS: CBC shows WBC 2.6, hemoglobin 12, hematocrit 40 , platelets 210. Metabolic panel: Sodium 130, chloride 98, CO2 of 22, BUN 16, creatinine 0.8, glucose 130, AST 68, ALT 56. CK-MB 2.4, troponin I less than 0.010. Urinalysis negative. Chest x-ray negative. CT of the brain, no acute changes seen. EKG shows normal sinus rhythm, no acute ST-T wave changes seen. ASSESSMENT: 1. Seizure episode. 2. PEG tube is clogged. 3. History of cerebral hemorrhage. 4. Protein calorie malnutrition. 5. Anemia. 6. Dysphagia status post PEG tube. PLAN: 1. Vital signs q.4 hours. 2. Activity: As tolerated. 3. Allergies: NKDA. 4. IV fluids D51/2 NS80 mL per hour. 5. Diet: N.p.o. 6. GI consult. 7. EEG. 8. Neuro [facility]. [facility]
[2018-06-12] MEDS: Pantoprazole 40 MG VIAL IVP SCH (21:43)
[2018-06-13] MEDS: Dextrose 5 %-0.45 % NaCl 1,000 ML IV SCH ×2 (02:19→11:12)
[2018-06-13] MEDS ORDERED: CEFAZOLIN 2 GM/50 ML BAG ONE (09:41)
[2018-06-13] MEDS ORDERED: PROPOFOL 200 MG/20 ML VIAL ONE (13:01)
[2018-06-13] MEDS ORDERED: Lidocaine 1% PF 5 ML VIAL ONE (13:01)
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
--- NOTE | 2018-06-13 22:17 | OP ---
DATE OF SURGERY: 06/13/2018 OPERATIVE PROCEDURE: Esophagogastroduodenoscopy with endoscopic gastrostomy tube placed. PREOPERATIVE DIAGNOSES: 1. Severe cerebrovascular accident, dysphagia. 2. Clot G-tube. PROCEDURE NOTE: The patient was placed on his back and was given sedation by Anesthesia Department. No antibiotics were given, as it was definitely same port as before to replace the G-tube. A Pentax video gastroscope under direct vision passed over the oropharynx, past the GE junction into stomach and subsequently into descending duodenum. No pathology seen. The esophagus, stomach, and duodenum, no lesions seen. The previously placed G-tube was identified. It was somewhat difficult to remove it, but because to remove it. After the G-tube was removed, a guidewire was advanced into the stomach through the same port. It was grasped with polypectomy snare and pulled outside of the mouth . To the end of guidewire protruding outside of the mouth, a gastrostomy tube was connected. The wi re was pulled back retrograde and the tube left in place. The patient rescoped again. There were no complications noted. The stomach decompressed and the scope removed. RECOMMENDATION: May start tube feeding today at 30 mL per hour and may increase it to 55-60 mL hopef ully by tomorrow. Also he has a lot of flush.
[2018-06-14] MEDS: Pantoprazole 40 MG VIAL IVP SCH ×2 (00:02→22:09)
[2018-06-14] MEDS: Dextrose 5 %-0.45 % NaCl 1,000 ML IV SCH ×2 (03:01→17:01)
[2018-06-14] MEDS ORDERED: Haloperidol Lactate 5 MG/ML VIAL IM PRN (04:08)
[2018-06-14 15:47] VITALS: BMI 13.6
--- NOTE | 2018-06-14 17:53 | RAD ---
CONTRAST UPPER GASTROINTESTINAL RADIOGRAPH: Clinical history: Placement of enteric catheter, evaluation for placement location. FINDINGS: A precontrast and subsequent post contrast abdominal radiographic view reveals a coiled catheter in t he left upper quadrant with subsequent contrast opacification of nondistended gastric lumen. There is moderate retained fecal material of the colon. Punctate scattered densities likely related t o retained fecal material. IMPRESSION: Contrast enhancement within gastric lumen, status post injection via indwelling left upper quadrant c atheter. POS: BRENTON
[2018-06-15] MEDS: Dextrose 5 %-0.45 % NaCl 1,000 ML IV SCH (06:09)
--- NOTE | 2018-06-15 08:39 | EEG ---
Referring Physician: MAGY EEG # [id number] TEST TYPE: ROUTINE PORTABLE INPATIENT REPORT: AN EEG USING THE INTERNATIONAL TEN-TWENTY SYSTEM OF ELECTRODE PLACEMENT WAS PERFORMED. The waking background is a 9 hertz alpha frequency. The patent remained awake throughout the study. Photic stimulation was unremarkable. No epileptiform features were seen. IMPRESSION: THIS IS A NORMAL AWAKE EEG. Consumer Science Teacher: DRAKE Preschool Aide: [email or web address] APPIAH
[2018-06-15] MEDS ORDERED: Lidocaine 1% PF 5 ML VIAL ONE (14:50)
[2018-06-15] MEDS ORDERED: Labetalol HCl 100 MG/20 ML VIAL ONE (14:50)
[2018-06-15] MEDS ORDERED: PROPOFOL 200 MG/20 ML VIAL ONE (14:50)
--- NOTE | 2018-06-15 15:47 | PQF ---
CLINICAL DOCUMENTATION IMPROVEMENT CLARIFICATION FORM: ICD-10 Updated PLEASE DO AN ADDENDUM TO THE PROGRESS NOTE WITH ANY DOCUMENTATION UPDATES OR ADDITIONS AND CARRY THROUGH TO DC SUMMARY. THANK YOU. DATE: 06/15/18 ATTN: Dr. Cm Please exercise your independent, professional judgment in responding to the clarification form. Clinical indicators are provided on the bottom of this form for your review Please check appropriate box(s): ___y____ I (concur) with the Observation Nursing Assessment findings as stated below. [ ] Pressure Ulcer: (Stage I: Erythema; Stage II: Partial thickness; Stage III : Full thickness; Stage IV: Necrosis to muscle/bone) [ ] Location: Stage (I to IV): (Left Right____Bilateral___N/A____) [ ] Location: Stage (I to IV): ____ (Left Right____Bilateral____N/A____) [ ] No pressure ulcer diagnosis [ ] Other diagnosis [ ] Unable to determine In addition, please specify: Present on Admission (POA): [ y ] Yes [ ] No [ ] Unable to determine For continuity of documentation, please document condition throughout progress notes and discharge summary. Thank You. CLINICAL INDICATORS - SIGNS / SYMPTOMS / LABS Observation Nursing Assessment 06/12 @ 0330: Saccrococcygeal pressure ulcer. Stage I RISKS: H&P: Hx of cerebral hemorrhage. Protein calorie malnutrition. Dysphagia status post peg tube TREATMENT: Skin interventions per Nursing protocol: Position changes: Q2h in bed Skin kept from excessive moisture Pre-ulcer skin changes limited to persistent focal edema (Stage 1) Abrasion, blister, partial thickness skin loss involving epidermis and/or dermis (Stage 2) Full thickness skin loss involving damage or necrosis of SQ tissue. (Stage 3) Necrosis of soft tissue through to underlying muscle, tendon, or bone. (Stage 4) Purple or maroon discolored skin or blood filled blister Thank you, Funmilayo (This form is maintained as a part of the permanent medical record) 2015 [employer] All Rights Reserved Funmilayo Cleary RN, [email or web address] Office: [phone] [facility] HOSPITALOlamide
[2018-06-15] MEDS ORDERED: CEFAZOLIN 2 GM/50 ML BAG ONE (18:31)
[2018-06-15] MEDS ORDERED: hydrALAZINE 20 MG/ML VIAL ONE (20:02)
[2018-06-16] MEDS: Pantoprazole 40 MG VIAL IVP SCH (02:20)
[2018-06-16] MEDS: Dextrose 5 %-0.45 % NaCl 1,000 ML IV SCH ×2 (02:20→18:00)
[2018-06-16] MEDS ORDERED: cloNIDine 0.1 MG TAB PER TUBE PRN (08:52)
[2018-06-16] MEDS ORDERED: Acetaminophen 650 MG/20.3 ML UDCUP PER TUBE PRN (08:52)
--- NOTE | 2018-06-16 08:53 | OP ---
DATE OF PROCEDURE: 06/15/2018 OPERATIVE PROCEDURE: Attempted replacement of G-tube at bedside. PREOPERATIVE DIAGNOSIS: Dysphagia, status post cerebrovascular accident. The patient had a PEG tube placed on this past Thursday, and he has pulled it out yesterday. An attemp t was made to replace the G-tube at bedside. The patient had a temporary Rowe catheter placed last night. This was removed easily. Attempt to replace the catheter site with a 22-Nigerian gastrostomy t ube could not be done. I did insert a Rowe catheter easily into the stomach, and the balloon was br ought up the gastrostomy opening . Dilation done one more time. An attempt was made to replace the G-tube 22-Nigerian size. This was not successful. Another attempt was made with a 20-Nigerian G-tu be, and again, I could not advance into the stomach. The procedure was terminated. We will plan to take the patient to the endoscopy later on today and do an EGD and place a G-tube at a different loca tion to prevent the patient pulling it out again.
[2018-06-16] MEDS ORDERED: Pancrelipase DR 12000 1 CAP PER TUBE PRN (08:59)
[2018-06-16] MEDS ORDERED: Pantoprazole 40 MG GRANULES PACKET PER TUBE SCH (09:00)
[2018-06-16] MEDS ORDERED: Lisinopril 20 MG TAB PER TUBE SCH (09:00)
[2018-06-16] MEDS ORDERED: Cyanocobalamin (Vitamin B-12) 1,000 MCG TAB PER TUBE SCH (09:00)
[2018-06-16] MEDS ORDERED: levETIRAcetam 500 mg/5 ml Oral Solution PER TUBE SCH (09:00)
[2018-06-16] MEDS ORDERED: Folic Acid 1 MG TAB PER TUBE SCH (09:00)
[2018-06-16] MEDS ORDERED: Sodium Bicarbonate Tab 325 MG TAB PER TUBE PRN (09:02)
--- NOTE | 2018-06-16 09:13 | OP ---
DATE OF SURGERY: 06/15/2018 SURGEON: Luis Carlos Antonio M.D. OPERATIVE PROCEDURE: Esophagogastroduodenoscopy with endoscopic gastrostomy tube placement. PREOPERATIVE DIAGNOSES: Dysphagia, status post cerebrovascular accident. PROCEDURE NOTE: The patient was placed on his back and was given sedation by Anesthesia Department. The patient also given IV Ancef 2 grams prophylaxis before the procedure. A bite block was placed. A Pentax video gastroscope under direct vision was passed down to the oropharynx, past the GE juncti on into the stomach and subsequently into descending duodenum. There is no pathology seen. The prev iously placed G-tube site was identified. Replaced the G-tube in a different location because patien t kept pulling the G-tube out. The previous G-tube site dressing applied from outside. The gastrost uriah tube site was marked light transillumination within and also by finger pressure in abdomen. The site was cleaned and surgically prepped. The site was anesthetized with 1% Xylocaine infiltration. Over the site, a size-16 Angiocath was advanced into the stomach. Through the Angiocath, a guidewire was fed into the stomach. This was grasped with polypectomy snare and pulled outside of the mouth. On the right side of wire entry, a 0.5 to 0.75 cm size incision was made. To the end of guidewire p ulling outside of the mouth, a gastrostomy tube connected. The placed by pulling out of the mo uth. The dressing applied and also the feeding port connected. RECOMMENDATIONS: 1. Hold the feeding at 11:30 today. 2. G-tube with water at 11:30 and start tube feeding later on today.
[2018-06-16] MEDS: hydrALAZINE 25 MG TAB PER TUBE SCH ×2 (10:47→14:25)
[2018-06-16 16:30] VITALS: BP 138/98; TEMP 98.1
[2018-06-16] MEDS ORDERED: Tamsulosin HCl 0.4 MG CAP PO SCH (21:00)
[2018-06-16] MEDS ORDERED: Senokot 8.6 MG TAB PER TUBE SCH (21:00)
[2018-06-17] MEDS ORDERED: Polyethylene Glycol 3350 17 GM Packet PER TUBE SCH (09:00)
== END 2018-06-16 18:16 | DRG 101 ==
LOC: ERS 17:07 → 2SE 23:30 → OBSVTOIN 06-12 11:34
PROVIDERS: ADMIT Internal Medicine; ATTEND Internal Medicine
PROC: 0D20XUZ Change Feeding Device in Upper Intestinal Tract, External Approach (ICD-10-PCS; principal; 2018-06-13)
PROC: 0DH63UZ Insertion of Feeding Device into Stomach, Percutaneous Approach (ICD-10-PCS; 2018-06-15)
DX: G40.909 Epilepsy, unspecified, not intractable, without status epilepticus (principal); K94.23 Gastrostomy malfunction; G81.94 Hemiplegia, unspecified affecting left nondominant side; E46 Unspecified protein-calorie malnutrition; Z68.1 Body mass index [BMI] 19.9 or less, adult; R13.10 Dysphagia, unspecified; L89.151 Pressure ulcer of sacral region, stage 1; J44.9 Chronic obstructive pulmonary disease, unspecified; S06.9X0S Unspecified intracranial injury without loss of consciousness, sequela; G93.89 Other specified disorders of brain; R07.9 Chest pain, unspecified; I10 Essential (primary) hypertension; D64.89 Other specified anemias; E78.5 Hyperlipidemia, unspecified; Z79.899 Other long term (current) drug therapy; Z87.891 Personal history of nicotine dependence
CPT/HCPCS: 36415; 51701; 70450; 71045; 74018; 80053; 81003; 81015; 82550; 82553; 84146; 84484; 85025; 87324; 87449; 93005; 94640; 95816; 95819; C9113; J0360; J1630; J1953; J2001; J2704

== ENCOUNTER 2018-07-07 18:03 | Emergency (ER) | payer MEDICARE, MEDICAID ==
[2018-07-07] MEDS ORDERED: Piperacillin/Tazobactam 4.5 GM VIAL ONE (18:51)
[2018-07-07 19:02] LABS: #Lymphocytes 0.7 thou/uL (1.20-3.40); #Monocytes 0.2 thou/uL (0.11-0.59); #Neutrophils 1.4 thou/uL (1.40-6.50); %Basophils 1.3 % (0.0-1.0); %Eosinophils 0.2 % (0.0-10.0); %Lymphocytes 30.9 % (21.0-51.0); %Monocytes 9.5 % (0.0-10.0); %Neutrophils 58.1 % (42.0-75.0); Hemoglobin 11.1 g/dL (14.0-18.0); Mean Corpuscular HGB CONC 31.2 g/dL (32.0-36.0); Mean Corpuscular Hemoglobin 31.1 pg (27.0-31.0); Mean Corpuscular Volume 99.6 fL (78.0-98.0); Mean Platelet Volume 9.5 fL (7.4-10.4); Platelet Count 153 thou/uL (130-400); RBC Distribution Width 12.6 % (11.5-14.5); Red Blood Cell (RBC) Count 3.56 mill/uL (4.70-6.10); White Blood Cell (WBC) Count 2.4 thou/uL (4.8-10.8)
--- NOTE | 2018-07-07 19:09 | RAD ---
FRONTAL RADIOGRAPH CHEST: 07/07/18 COMPARISON: 06/11/18. HISTORY: Seizure, cough. FINDINGS: No pneumothorax, pleural fluid, focal consolidation, or alveolar edema. Gastrostomy tube overlies the left upper quadrant. Heart and mediastinal contours stable. Mild increased linear interstitial densi ty is noted. IMPRESSION: No focal consolidation or alveolar edema. POS: ELADIO
[2018-07-07 19:38] LABS: Bilirubin Negative (Negative); Blood, Urine Negative (Negative); Clarity TURBID (Clear); Glucose, Urine (Dipstick) Negative (Negative); Leukocyte Negative (Negative); Nitrite Negative (Negative); Protein, Urine (Dipstick) Trace mg/dL (Neg-Trace); Specific Gravity, Urine 1.012 (1.002-1.036); pH, Urine 8.5 (5.0-9.0)
[2018-07-07 19:50] LABS: ALT (SGPT) 53 U/L (8-55); AST (SGOT) 64 U/L (5-34); Albumin 3.1 g/dL (3.5-5.0); Alkaline Phosphatase 156 U/L (40-150); Anion Gap 13 mmol/L (10-20); BUN (Urea Nitrogen) 13 mg/dL (8.4-25.7); Bilirubin, Total 1.4 mg/dL (0.2-1.2); Calc. Creatinine Clearance 0 mL/min (70-130); Calcium 8.9 mg/dL (7.8-10.44); Carbon Dioxide 24 mmol/L (22-29); Chloride 105 mmol/L (98-107); Estimated GFR-MDRD Greater than 90; Globulin 4.1 g/dL (2.4-3.5); Glucose 96 mg/dL (70-105); Potassium 3.5 mmol/L (3.5-5.1); Protein, Total 7.2 g/dL (6.0-8.3); Sodium 138 mmol/L (136-145)
[2018-07-07] MEDS ORDERED: Fosphenytoin Sodium 100 mg/2 ml Vial ONE (21:09)
[2018-07-07] MEDS ORDERED: Fosphenytoin Sodium 500 mg/10 ml Vial ONE (21:09)
[2018-07-07] MEDS ORDERED: Sodium Chloride 0.9% 0 ML ONE (21:09)
[2018-07-07] MEDS ORDERED: SODIUM CHLORIDE 0.9% IVPB SCH (21:45)
[2018-07-07] MEDS ORDERED: FOSPHENYTOIN SODIUM IVPB SCH (21:45)
--- NOTE | 2018-07-08 14:27 | EKG ---
Test Reason : SEIZURE Blood Pressure : / mmHG Vent. Rate : 102 BPM Atrial Rate : 102 BPM P-R Int : 118 ms QRS Dur : 064 ms QT Int : 344 ms P-R-T Axes : 088 056 -40 degrees QTc Int : 448 ms Sinus tachycardia Possible Left atrial enlargement Anteroseptal infarct , age undetermined Abnormal ECG Confirmed by KRISTEN MAYFIELD, JIM España ([id number]), acquisition editor JULIOCESAR GARBER ([id number]) on 07/08/2018 2:26:45 PM Referred By: Confirmed By:JIM PETERSON MD
== END 2018-07-07 23:23 ==
LOC: ERS 18:03
DX: R56.9 Unspecified convulsions (principal); E11.9 Type 2 diabetes mellitus without complications; J44.9 Chronic obstructive pulmonary disease, unspecified; Z87.891 Personal history of nicotine dependence; Z79.899 Other long term (current) drug therapy
CPT/HCPCS: 36415; 51701; 71045; 80053; 81003; 83605; 85025; 87040; 87086; 93005; 94640; 96361; 96365; 96367; J2543; J7050; J7620; Q2009

== ENCOUNTER 2018-07-11 20:14 | Inpatient (IN) | payer MEDICARE, MEDICAID ==
[2018-07-11 20:26] LABS: Actual Bicarbonate (HCO3a) 28.5 mEq/L (22-28); Analyzer IN Cardio ER; Base Excess (BEa) 2.1 mEq/L (-2.0 to +3.0); CO2 Tension 52.4 mmHg (35.0-45.0); Calcium, Ionized 1.22 mmol/L (1.12-1.30); Carboxyhemoglobin (COHb) 0.3 gm% (0.0-3.0); O2 Tension (PaO2) 84.6 mmHg (80.0-100.0); Potassium - ABG Lab 4.19 mmol/L (3.70-5.30); pH, Arterial 7.35 (7.35-7.45)
[2018-07-11 20:29] LABS: Puncture Site RRA
[2018-07-11 20:44] LABS: #Lymphocytes 1.2 thou/uL (1.20-3.40); #Monocytes 0.3 thou/uL (0.11-0.59); #Neutrophils 1.3 thou/uL (1.40-6.50); %Basophils 0.6 % (0.0-1.0); %Eosinophils 0.7 % (0.0-10.0); %Monocytes 10.4 % (0.0-10.0); %Neutrophils 45.3 % (42.0-75.0); Mean Corpuscular HGB CONC 31.8 g/dL (32.0-36.0); Mean Corpuscular Hemoglobin 31.6 pg (27.0-31.0); Mean Corpuscular Volume 99.4 fL (78.0-98.0); Mean Platelet Volume 8.8 fL (7.4-10.4); Platelet Count 238 thou/uL (130-400); RBC Distribution Width 13.2 % (11.5-14.5); Red Blood Cell (RBC) Count 3.78 mill/uL (4.70-6.10); White Blood Cell (WBC) Count 2.8 thou/uL (4.8-10.8)
[2018-07-11 21:06] LABS: ALT (SGPT) 46 U/L (8-55); AST (SGOT) 58 U/L (5-34); Albumin 3.2 g/dL (3.5-5.0); Alkaline Phosphatase 156 U/L (40-150); Anion Gap 12 mmol/L (10-20); BUN (Urea Nitrogen) 14 mg/dL (8.4-25.7); Bilirubin, Total 1.5 mg/dL (0.2-1.2); Calc. Creatinine Clearance 0 mL/min (70-130); Carbon Dioxide 28 mmol/L (22-29); Chloride 107 mmol/L (98-107); Estimated GFR-MDRD Greater than 90; Globulin 4.2 g/dL (2.4-3.5); Glucose 104 mg/dL (70-105); Potassium 3.9 mmol/L (3.5-5.1); Protein, Total 7.4 g/dL (6.0-8.3); Sodium 143 mmol/L (136-145)
[2018-07-11] MEDS ORDERED: methylPREDNISolone Sod Succ/PF 125 MG/2 ML VIAL ONE (21:24)
[2018-07-11] MEDS ORDERED: Magnesium 2 GM/50 ML BAG (IN WATER) ONE (21:24)
[2018-07-11 21:39] LABS: Bilirubin Negative (Negative); Blood, Urine Negative (Negative); Clarity CLOUDY (Clear); Glucose, Urine (Dipstick) Negative (Negative); Leukocyte Negative (Negative); Nitrite Negative (Negative); Protein, Urine (Dipstick) Negative (Neg-Trace); Specific Gravity, Urine 1.013 (1.002-1.036); pH, Urine 7.5 (5.0-9.0)
--- NOTE | 2018-07-11 21:39 | RAD ---
RADIOGRAPH CHEST 1 VIEW: HISTORY: 57-year-old male with dyspnea. FINDINGS: There is hyperinflation of the lungs, consistent with COPD. There is no evidence of air space densit y, pneumothorax, or pulmonary edema. The lateral costophrenic angles are sharp. There is no cardiome mikal. IMPRESSION: 1) No acute pulmonary findings. 2) Emphysema. jn POS: JIN
[2018-07-11] MEDS ORDERED: Dexamethasone 10 MG/ML VIAL ONE (22:16)
[2018-07-11] MEDS ORDERED: Ondansetron PF 4 MG/2 ML Vial IVP PRN (23:25)
[2018-07-11] MEDS ORDERED: Ondansetron ODT 4 MG TAB SL PRN (23:25)
[2018-07-11 23:47] VITALS: BMI 14.3
[2018-07-12] MEDS ORDERED: Calcium Carbonate 500 MG ChewTAB PO PRN (03:16)
[2018-07-12] MEDS ORDERED: Zolpidem Tartrate 5 MG TAB PO PRN (03:16)
[2018-07-12] MEDS ORDERED: Acetaminophen 325 MG TAB PO PRN (03:16)
[2018-07-12] MEDS ORDERED: Bisacodyl 5 MG TAB PO PRN (03:16)
[2018-07-12] MEDS ORDERED: Dextrose 50% Abboject 50 ML SYRINGE SLOW IVP PRN (03:16)
[2018-07-12] MEDS ORDERED: Senokot S 8.6-50 MG TAB PO PRN (03:16)
[2018-07-12] MEDS ORDERED: Dextrose 5% in Water 1,000 ML IV PRN (03:16)
[2018-07-12] MEDS ORDERED: HumaLOG 300 UNITS/3 ML VIAL SC PRN ×2 (03:16)
[2018-07-12] MEDS ORDERED: Guaifenesin DM 100-10/5 ML UDCUP PO PRN (03:16)
[2018-07-12] MEDS ORDERED: Acetaminophen 650 MG/20.3 ML UDCUP PER TUBE PRN (03:21)
[2018-07-12] MEDS ORDERED: cloNIDine 0.1 MG TAB PER TUBE PRN (03:21)
[2018-07-12] MEDS ORDERED: Guaifenesin DM 100-10/5 ML UDCUP PER TUBE PRN (03:45)
[2018-07-12 05:04] LABS: #Lymphocytes 0.4 thou/uL (1.20-3.40); #Monocytes 0.2 thou/uL (0.11-0.59); #Neutrophils 8.5 thou/uL (1.40-6.50); %Eosinophils 0.1 % (0.0-10.0); %Lymphocytes 4.2 % (21.0-51.0); %Monocytes 2.4 % (0.0-10.0); %Neutrophils 93.3 % (42.0-75.0); Hemoglobin 11.1 g/dL (14.0-18.0); Mean Corpuscular HGB CONC 32.3 g/dL (32.0-36.0); Mean Corpuscular Hemoglobin 32.1 pg (27.0-31.0); Mean Corpuscular Volume 99.3 fL (78.0-98.0); Mean Platelet Volume 9.8 fL (7.4-10.4); Platelet Count 194 thou/uL (130-400); Red Blood Cell (RBC) Count 3.45 mill/uL (4.70-6.10); White Blood Cell (WBC) Count 9.1 thou/uL (4.8-10.8)
[2018-07-12 05:28] LABS: Anion Gap 10 mmol/L (10-20); BUN (Urea Nitrogen) 15 mg/dL (8.4-25.7); Calc. Creatinine Clearance 80 mL/min (70-130); Carbon Dioxide 27 mmol/L (22-29); Chloride 107 mmol/L (98-107); Estimated GFR-MDRD Greater than 90; Glucose 121 mg/dL (70-105); Sodium 140 mmol/L (136-145)
[2018-07-12] MEDS ORDERED: Enoxaparin Sodium 40 MG/0.4 ML SYRINGE SC SCH (09:00)
[2018-07-12] MEDS ORDERED: Ferrous Sulfate 325 MG TAB PO SCH (09:00)
--- NOTE | 2018-07-12 09:43 | HP ---
CHIEF COMPLAINT: Shortness of breath. HISTORY OF PRESENT ILLNESS: This is a 57-year-old male with past medical history significant for diabetes mellitus, COPD, cerebral hemorrhage in the past, history of hydrocephalus, hypertension, hyperlipidemia, chronic anemia, presenting with shortness of breath. The patient was transferred from [facility] [place] to our ED due to shortness of breath. Per EMS, the patient's oxygenation was 92%. The patient was given an inch of nitropaste and the patient was put on CPAP. After CPAP, the patient's O2 went up to 100%. The patient was then brought into our ED and upon further investigation, the patient has been in the hospital before and the patient was treated for seizures. Recently, the patient was also treated for pneumonia. REVIEW OF SYSTEMS: Unable to be obtained since the patient is nonverbal. PAST MEDICAL HISTORY: Significant for COPD, cerebral hemorrhage, history of hydrocephalus, hypertension, hyperlipidemia, chronic anemia, mild nutrition, respiratory failure due to pneumonia, and dysphagia, status post PEG tube placement. FAMILY HISTORY: Reviewed and noncontributory to this case. PAST SURGICAL HISTORY: PEG tube placement. SOCIAL HISTORY: The patient does not drink alcohol. The patient was a former drug user. The patient used to do IV drugs in the past. The patient used to smoke marijuana in the past. ALLERGIES: NO KNOWN DRUG ALLERGIES. CURRENT MEDICATIONS: The patient takes: 1. Clonidine. 2. Ferrous sulfate. 3. Polyethylene glycol. 4. Protonix. 5. Senna. 6. Tamsulosin. 7. Lisinopril. PHYSICAL EXAMINATION: VITAL SIGNS: The patient's blood pressure is 136/88, pulse of 90, respiratory rate of 20, and temperature of 97.6. GENERAL: The patient currently is very cachectic, lying in bed, pleasant. The patient does not respond to my questions. The patient is nonverbal. HEENT: Normocephalic and atraumatic. The patient has bilateral temporal wasting. Pupils are equally round and reactive to light. Extraocular movements are intact. No scleral icterus. NECK: Trachea is midline. Full range of motion. No JVD. LUNGS: Clear to auscultation. No wheezing. No rales. No rhonchi appreciated. CARDIAC: Positive S1 and S2. The patient is tachycardic. ABDOMEN: The patient has scaphoid abdomen. Soft, nondistended. Positive bowel sounds in all quadrants. EXTREMITIES: The patient has 5/5 upper extremity strength and 5/5 lower extremity strength. No edema noted. The patient has good pulses bilaterally at the upper and lower extremities. NEUROLOGIC: The patient is awake and alert. The patient does not follow commands. SKIN: Warm, dry, and intact. PSYCHIATRIC: The patient is baseline demented. DIAGNOSTIC DATA: EKG; a 12-lead EKG shows sinus tachycardia. Chest x-ray shows no acute pulmonary findings. LABORATORY DATA: WBC is 2.8, hemoglobin is 12.0, hematocrit is 37.6, platelet count is 238. ABGs; pH is 7.3, pCO2 52.4, and pO2 is 84. Electrolytes within normal limits except for AST that is 58 and total bilirubin is 1.5. Otherwise, rest of labs are negative. ASSESSMENT AND PLAN: This is a 57-year-old being admitted for: 1. Hypercapnic and hypoxemic respiratory failure. At this point, the patient has been started on BiPAP. The patient has done well on BiPAP. We are going to continue the BiPAP. We are going to continue to monitor the patient's oxygenation. ABG has been done, which shows the patient's pCO2 of 52, so we will continue the patient on the current settings of his BiPAP and we will transition the patient on BiPAP once the patient starts to become well oxygenated. 2. Chronic obstructive pulmonary disease exacerbation. We started the patient on Levaquin. We are going to continue the patient on antibiotics. We are going to continue the patient on oxygenation, and we will give the patient DuoNeb treatments as well. 3. History of hypertension. Currently, the patient's blood pressure is under control. We will continue to monitor the patient's blood pressure closely. We will continue the patient on current management. 4. Malnutrition. The patient is very cachectic. We will continue the patient on a diet, and we will get Nutrition consult. 5. Status post percutaneous endoscopic gastrostomy tube placement. At this point, there are no signs of infection. We will continue to use the PEG tube and we will continue to feed the patient since the patient is severely malnutritioned. 6. Deep venous thrombosis and gastrointestinal prophylaxis. Job ID: [id number]
[2018-07-12] MEDS: Famotidine/PF 20 mg/2ml Vial SLOW IVP SCH ×2 (09:58→21:23)
[2018-07-12] MEDS: hydrALAZINE 25 MG TAB PER TUBE SCH ×4 (09:59→21:24)
[2018-07-12] MEDS: Folic Acid 1 MG TAB PER TUBE SCH ×2 (09:59→16:10)
[2018-07-12] MEDS: Famotidine 20 MG TAB PER TUBE SCH ×3 (09:59→21:03)
[2018-07-12] MEDS: Tamsulosin HCl 0.4 MG CAP PO SCH ×3 (10:00→21:24)
[2018-07-12] MEDS ORDERED: hydrALAZINE 20 MG/ML VIAL SLOW IVP PRN (10:00)
[2018-07-12] MEDS: Lisinopril 20 MG TAB PER TUBE SCH ×2 (10:00→16:11)
[2018-07-12] MEDS: levETIRAcetam 500 mg/5 ml Oral Solution PER TUBE SCH ×3 (10:00→21:24)
[2018-07-12] MEDS ORDERED: Pancrelipase DR 12000 1 CAP PER TUBE PRN (10:23)
[2018-07-12] MEDS ORDERED: Sodium Bicarbonate Tab 325 MG TAB PER TUBE PRN (10:24)
[2018-07-12] MEDS: Doxycycline 100 MG CAP PER TUBE SCH ×3 (10:35→21:24)
[2018-07-12] MEDS: Cefepime 1 GM in Sodium Chloride 0.9% 100 ML IVPB SCH ×2 (12:33→21:23)
[2018-07-12] MEDS ORDERED: guaiFENesin 100 MG/5 ML UDCUP PER TUBE SCH (21:00)
[2018-07-12] MEDS: Diabetic Tussin 200 MG/10 ML UDCUP PER TUBE SCH (21:24)
--- NOTE | 2018-07-12 23:15 | PRG ---
DATE OF SERVICE: 07/12/2018 SUBJECTIVE: The patient is a 57-[facility]-old [place] [facility] resident with COPD and recent pneumonia, completed 10-day course of Levaquin, presented to the hospital with shortness of breath. He has currently been admitted with a diagnosis of COPD exacerbation. Shortness of breath is improving. Overall, he feels better. His O2 saturation in the emergency room was 92% on noninvasive positive-pressure ventilation. CURRENT MEDICATIONS: Current medications were reviewed. The patient is currently on, 1. Steroids. 2. Lovenox. 3. Pepcid. 4. Iron. 5. Keppra. 6. Lisinopril. 7. Flomax. PHYSICAL EXAMINATION: VITAL SIGNS: Temperature 98.2, pulse rate of 66, O2 saturation 95% on 2 L nasal cannula, respirations 18, blood pressure 124/82. Intake and output are unavailable. GENERAL: A 57-year-old cachectic male, in mild respiratory distress. LUNGS: Showed scattered rhonchi with some wheezing. There was minimal accessory muscle use. No significant rales noted. HEART: S1 and S2 present. Regular rate and rhythm. No heaves or pulsation. ABDOMEN: Soft, nontender. Bowel sounds present. PEG tube noted. EXTREMITIES: No edema or calf tenderness. NEUROLOGIC: At baseline, the patient has quadriplegia. PSYCHIATRY: The patient is alert and awake. SKIN: Warm and dry. LYMPH NODES: No palpable lymph nodes in the neck. LABORATORY FINDINGS: CBC showed WBC 9.1 from 2.8, hemoglobin 11.1, hematocrit 34.3, platelets 194. ABG showed pH 7.35, pCO2 of 52.4, PO2 of 84.6, bicarbonate 28.5 , on noninvasive positive-pressure ventilation. Chemistry showed sodium 140, potassium 4, chloride 107, bicarb 27. Troponin was negative. Urinalysis was negative. Blood culture negative. Urine culture negative. Chest x-ray by my review showed chronic changes. EKG by my review showed sinus rhythm. IMPRESSION: 1. Acute hypoxic and hypercapnic respiratory failure, secondary to chronic obstructive pulmonary disease exacerbation. 2. Recent pneumonia, completed 10-day course of Levaquin. 3. Chronically abnormal LFTs. 4. Chronic anemia. 5. Hypertension. 6. Moderate protein-calorie malnutrition. 7. Swallow dysfunction, currently on PEG tube feeding. 8. Functional quadriplegia. 9. Seizure disorder, on Keppra and benign prostatic hypertrophy, on Flomax. PLAN: The patient will be transferred to medical floor. We will continue all other home medications. We will reduce the dose of steroids. We will add cefepime and doxycycline. Continue nebulizer treatment. According to respiratory therapist , the patient has been refusing nebulizer treatments. We will recheck labs in a.m. Job ID: [id number] MTDD
[2018-07-13 09:22] LABS: #Lymphocytes 0.6 thou/uL (1.20-3.40); #Monocytes 0.2 thou/uL (0.11-0.59); #Neutrophils 3.2 thou/uL (1.40-6.50); %Basophils 0.3 % (0.0-1.0); %Lymphocytes 13.9 % (21.0-51.0); %Monocytes 4.1 % (0.0-10.0); %Neutrophils 81.6 % (42.0-75.0); Hemoglobin 10.7 g/dL (14.0-18.0); Mean Corpuscular HGB CONC 31.1 g/dL (32.0-36.0); Mean Corpuscular Hemoglobin 30.9 pg (27.0-31.0); Mean Corpuscular Volume 99.5 fL (78.0-98.0); Mean Platelet Volume 9.9 fL (7.4-10.4); Platelet Count 151 thou/uL (130-400); RBC Distribution Width 13.1 % (11.5-14.5); Red Blood Cell (RBC) Count 3.47 mill/uL (4.70-6.10); White Blood Cell (WBC) Count 3.9 thou/uL (4.8-10.8)
[2018-07-13 09:43] LABS: ALT (SGPT) 40 U/L (8-55); AST (SGOT) 51 U/L (5-34); Alkaline Phosphatase 138 U/L (40-150); Anion Gap 11 mmol/L (10-20); BUN (Urea Nitrogen) 22 mg/dL (8.4-25.7); Bilirubin, Total 1.4 mg/dL (0.2-1.2); Calc. Creatinine Clearance 78 mL/min (70-130); Calcium 9.1 mg/dL (7.8-10.44); Carbon Dioxide 27 mmol/L (22-29); Chloride 107 mmol/L (98-107); Estimated GFR-MDRD Greater than 90; Globulin 3.9 g/dL (2.4-3.5); Glucose 147 mg/dL (70-105); Magnesium 1.8 mg/dL (1.6-2.6); Phosphorus 2.4 mg/dL (2.3-4.7); Potassium 4.1 mmol/L (3.5-5.1); Protein, Total 6.9 g/dL (6.0-8.3); Sodium 141 mmol/L (136-145)
[2018-07-13] MEDS: Enoxaparin Sodium 30 MG/0.3 ML SYRINGE SC SCH (10:09)
[2018-07-13] MEDS: Doxycycline 100 MG CAP PER TUBE SCH ×2 (10:11→21:22)
[2018-07-13] MEDS: Diabetic Tussin 200 MG/10 ML UDCUP PER TUBE SCH ×2 (10:11→21:22)
[2018-07-13] MEDS: Saccharomyces boulardii 250 MG CAP PER TUBE SCH (10:12)
[2018-07-13] MEDS: Lisinopril 20 MG TAB PER TUBE SCH (10:12)
[2018-07-13] MEDS: Folic Acid 1 MG TAB PER TUBE SCH (10:12)
[2018-07-13] MEDS: Tamsulosin HCl 0.4 MG CAP PO SCH ×2 (10:12→21:22)
[2018-07-13] MEDS: Famotidine 20 MG TAB PER TUBE SCH ×2 (10:12→21:22)
[2018-07-13] MEDS: hydrALAZINE 25 MG TAB PER TUBE SCH ×3 (10:12→21:22)
[2018-07-13] MEDS: Polyethylene Glycol 3350 17 GM Packet PER TUBE SCH (10:13)
[2018-07-13] MEDS: Cefepime 1 GM in Sodium Chloride 0.9% 100 ML IVPB SCH ×2 (10:18→21:21)
[2018-07-13] MEDS: levETIRAcetam 500 mg/5 ml Oral Solution PER TUBE SCH ×2 (10:18→21:22)
--- NOTE | 2018-07-13 19:36 | PDOC.PN ---
- Subjective Encounter Start Date: 07/13/18 Encounter Start Time: 10:45 Patient seen and examined for COPD exacerbation. No new complaints. No overnight events - Objective Resuscitation Status - Order Detail: 07/12/18 03:16 Resuscitation Status Routine Resuscitation Status: FULL: Full Resuscitation MAR Reviewed: Yes Vital Signs & Weight: Vital Signs (12 hours) Temp Pulse Resp BP BP Pulse Ox 07/13/18 16:00 97.6 F 84 18 135/93 H 98 07/13/18 14:15 68 123/81 07/13/18 11:18 97.7 F 68 18 123/81 99 07/13/18 10:12 65 124/78 07/13/18 08:00 97 Weight Admit Weight 94 lb 9.6 oz Weight 94 lb 9.6 oz I&O: 07/12/18 07/13/18 07/14/18 06:59 06:59 06:59 Intake Total 150 150 Balance 150 150 Result Diagrams: 07/13/18 08:58 07/13/18 08:58 Additional Labs: Accuchecks 07/13/18 07/13/18 07/13/18 16:08 11:15 06:15 POC Glucose 140 H 138 H 131 H 07/13/18 07/12/18 00:45 19:36 POC Glucose 161 H 125 H Phys Exam - Physical Examination Constitutional: NAD Respiratory: no wheezing Scat rhonchi and rales Cardiovascular: RRR, no rub Gastrointestinal: soft, non-tender, positive bowel sounds PEG + Musculoskeletal: no edema Neurological: moves all 4 limbs Dx/Plan - Plan DVT proph w/SCDs 1. Acute hypoxic and hypercapnic respiratory failure, secondary to COPD exacerbation. 2. Recent pneumonia, completed 10-day course of Levaquin. 3. Chronically abnormal LFTs. 4. Chronic anemia. 5. Hypertension. 6. Moderate protein-calorie malnutrition. 7. Swallow dysfunction, currently on PEG tube feeding. 8. Functional quadriplegia. 9. Seizure disorder, on Keppra and benign prostatic hypertrophy, on Flomax. PLAN: Cont Atbx/O2/Nebs/Steroids Cont PEG tube feeding Cont sliding scale Cont current meds as below Prob dc in AM if stable Review of Systems - Review of Systems Cardiovascular: negative: chest pain, palpitations, orthopnea, paroxysmal nocturnal dyspnea, edema, light headedness, other Gastrointestinal: negative: Nausea, Vomiting, Abdominal Pain, Diarrhea, Constipation, Melena, Hematochezia, Other - Medications/Allergies Allergies/Adverse Reactions: Allergies Allergy/AdvReac Type Severity Reaction Status Date / Time No Known Allergies Allergy Verified 06/12/18 01:28 Medications: Current Medications Acetaminophen (Tylenol Elixir) 650 mg PER TUBE Q4H PRN PRN Reason: Pain Albuterol/Ipratropium (Duoneb) 3 ml NEB [id number] PRN PRN Reason: SOB &/or Wheezing Lipase/Protease/Amylase (Henny [place]rey [id number]) 1 cap PER TUBE ASDIR PRN PRN Reason: TUBE OCCLUSION [place] Last Admin: 07/12/18 10:35 Dose: 1 cap Bisacodyl (Dulcolax) 10 mg PO DAILYPRN PRN PRN Reason: Constipation Calcium Carbonate (Tums) 1,000 mg PO Q4H PRN PRN Reason: Heartburn or Indigestion Clonidine (Catapres) 0.1 mg PER TUBE Q6HR PRN PRN Reason: Hypertension Dextrose/Water (Dextrose 50%) 25 gm SLOW IVP PRN PRN PRN Reason: Hypoglycemia Doxycycline Hyclate (Vibramycin) 100 mg PER TUBE Q12H [facility] Last Admin: 07/13/18 10:11 Dose: 100 mg Enoxaparin Sodium (Lovenox) 30 mg SC 0900 [facility] Last Admin: 07/13/18 10:09 Dose: 30 mg Famotidine (Pepcid) 20 mg PER TUBE BID [facility] Last Admin: 07/13/18 10:12 Dose: 20 mg Ferrous Sulfate (Ferrous Sulfate) 300 mg PER TUBE DAILY [facility] Last Admin: 07/13/18 10:12 Dose: 300 mg Folic Acid (Folvite) 1 mg PER TUBE DAILY [facility] Last Admin: 07/13/18 10:12 Dose: 1 mg Glucagon (Glucagon) 1 mg IM PRN PRN PRN Reason: Hypoglycemia Guaifenesin (Robitussin Sf) 600 mg PER TUBE BID [facility] Last Admin: 07/13/18 10:11 Dose: 600 mg Hydralazine HCl (Apresoline) 50 mg PER TUBE TID [facility] Last Admin: 07/13/18 14:15 Dose: 50 mg Hydralazine HCl (Apresoline) 10 mg SLOW IVP Q4H PRN PRN Reason: SBP Greater Than 180 Dextrose/Water (D5w) 1,000 mls @ 0 mls/hr IV .Q0M PRN PRN Reason: Hypoglycemia Cefepime HCl 1 gm/ Sodium (Chloride) 100 mls @ 200 mls/hr IVPB Q12H [facility] Last Admin: 07/13/18 10:18 Dose: 100 mls Insulin Human Lispro (Humalog) 0 units SC .MODERATE SLIDING SC PRN PRN Reason: Moderate Correctional Scale Insulin Human Lispro (Humalog) 0 units SC .BEDTIME SLIDING SC PRN PRN Reason: Bedtime Correctional Scale Levetiracetam (Keppra Oral Solution) 500 mg PER TUBE BID [facility] Last Admin: 07/13/18 10:18 Dose: 500 mg Lisinopril (Zestril) 20 mg PER TUBE DAILY [facility] Last Admin: 07/13/18 10:12 Dose: 20 mg Methylprednisolone Sodium Succinate (Solu-Medrol) 20 mg IVP Q8HR [facility] Last Admin: 07/13/18 14:16 Dose: 20 mg Polyethylene Glycol (Miralax) 17 gm PER TUBE DAILY [facility] Last Admin: 07/13/18 10:13 Dose: Not Given Saccharomyces Boulardii (Florastor) 250 mg PER TUBE DAILY [facility] Last Admin: 07/13/18 10:12 Dose: 250 mg Senna/Docusate Sodium (Senokot S) 2 tab PO BIDPRN PRN PRN Reason: Constipation Sodium Bicarbonate (Bicarbonate, Sodium) 650 mg PER TUBE ASDIR PRN PRN Reason: TUBE OCCLUSION [place] Last Admin: 07/12/18 10:35 Dose: 650 mg Sodium Chloride (Flush - Normal Saline) 10 ml IVF Q12HR [facility] Last Admin: 07/13/18 10:14 Dose: 10 ml Sodium Chloride (Flush - Normal Saline) 10 ml IVF PRN PRN PRN Reason: Saline Flush Tamsulosin HCl (Flomax) 0.4 mg PO BID [facility] Last Admin: 07/13/18 10:12 Dose: 0.4 mg
[2018-07-14] MEDS: Polyethylene Glycol 3350 17 GM Packet PER TUBE SCH (07:42)
[2018-07-14] MEDS: Enoxaparin Sodium 30 MG/0.3 ML SYRINGE SC SCH (07:42)
[2018-07-14] MEDS: hydrALAZINE 25 MG TAB PER TUBE SCH ×3 (07:42→21:03)
[2018-07-14] MEDS: Lisinopril 20 MG TAB PER TUBE SCH (07:45)
[2018-07-14] MEDS: Tamsulosin HCl 0.4 MG CAP PO SCH ×2 (07:45→21:03)
[2018-07-14] MEDS: Famotidine 20 MG TAB PER TUBE SCH ×2 (07:45→21:03)
[2018-07-14] MEDS: Saccharomyces boulardii 250 MG CAP PER TUBE SCH (07:45)
[2018-07-14] MEDS: Folic Acid 1 MG TAB PER TUBE SCH (07:45)
[2018-07-14] MEDS: levETIRAcetam 500 mg/5 ml Oral Solution PER TUBE SCH ×2 (07:46→21:18)
[2018-07-14] MEDS: Cefepime 1 GM in Sodium Chloride 0.9% 100 ML IVPB SCH ×2 (09:38→21:09)
[2018-07-14] MEDS: Doxycycline 100 MG CAP PER TUBE SCH ×2 (09:38→21:03)
[2018-07-14] MEDS: Diabetic Tussin 200 MG/10 ML UDCUP PER TUBE SCH ×2 (09:39→21:03)
[2018-07-14 10:54] LABS: Actual Bicarbonate (HCO3a) 28.4 mEq/L (22-28); Base Excess (BEa) 4.4 mEq/L (-2.0 to +3.0); CO2 Tension 40.1 mmHg (35.0-45.0); Calcium, Ionized 1.24 mmol/L (1.12-1.30); Carboxyhemoglobin (COHb) 0.8 gm% (0.0-3.0); Hemoglobin (Hb) 11.9 g/dL (14.0-18.0); O2 Tension (PaO2) 101.2 mmHg (80.0-100.0); Potassium - ABG Lab 4.09 mmol/L (3.70-5.30); pH, Arterial 7.47 (7.35-7.45)
[2018-07-14 11:01] LABS: ALV-art Gradient -1.595 (0-20); Puncture Site RRA
--- NOTE | 2018-07-14 15:51 | PDOC.PN ---
- Subjective Encounter Start Date: 07/14/18 Encounter Start Time: 10:30 Patient seen and examined for COPD flare. More somnolent. No new complaints. No overnight events - Objective Resuscitation Status - Order Detail: 07/12/18 03:16 Resuscitation Status Routine Resuscitation Status: FULL: Full Resuscitation MAR Reviewed: Yes Vital Signs & Weight: Vital Signs (12 hours) Temp Pulse Resp BP BP Pulse Ox 07/14/18 14:18 78 147/94 H 07/14/18 08:00 97.5 F L 68 18 152/98 H 97 07/14/18 07:45 142/86 H 07/14/18 07:42 97.5 F L 74 16 142/86 H 142/86 H 98 Weight Admit Weight 94 lb 9.6 oz Weight 94 lb 9.6 oz I&O: 07/13/18 07/14/18 07/15/18 06:59 06:59 06:59 Intake Total 900 1000 Balance 900 1000 Result Diagrams: 07/13/18 08:58 07/13/18 08:58 Additional Labs: Accuchecks 07/14/18 07/14/18 07/14/18 11:51 05:40 01:01 POC Glucose 128 H 127 H 149 H 07/13/18 16:08 POC Glucose 140 H Phys Exam - Physical Examination Constitutional: NAD Respiratory: no wheezing Scat rhonchi and rales Cardiovascular: RRR, no rub Gastrointestinal: soft, non-tender, positive bowel sounds Musculoskeletal: no edema Dx/Plan - Plan respiratory therapy, DVT proph w/lovenox, DVT proph w/SCDs 1. Acute hypoxic and hypercapnic respiratory failure, secondary to COPD exacerbation. 2. Recent pneumonia, completed 10-day course of Levaquin. 3. Chronically abnormal LFTs. 4. Chronic anemia. 5. Hypertension. 6. Moderate protein-calorie malnutrition. 7. Swallow dysfunction, currently on PEG tube feeding. 8. Functional quadriplegia. 9. Seizure disorder, on Keppra and benign prostatic hypertrophy, on Flomax. PLAN: ABG repeated today due to increased somnolence Will change steroids to PEG Cont Atbx/O2/Nebs/Steroids Cont current PEG tube feeding Cont sliding scale Cont other meds as below Prob dc in AM if stable Laboratory Tests 07/14/18 10:44 Bicarbonate Actual 28.4 H ABG pH 7.47 H ABG pCO2 40.1 ABG pO2 101.2 H ABG O2 Sat Calc/Pinky 97.7 Review of Systems - Review of Systems Cardiovascular: negative: chest pain, palpitations, orthopnea, paroxysmal nocturnal dyspnea, edema, light headedness, other Gastrointestinal: negative: Nausea, Vomiting, Abdominal Pain, Diarrhea, Constipation, Melena, Hematochezia, Other - Medications/Allergies Allergies/Adverse Reactions: Allergies Allergy/AdvReac Type Severity Reaction Status Date / Time No Known Allergies Allergy Verified 06/12/18 01:28 Medications: Current Medications Acetaminophen (Tylenol Elixir) 650 mg PER TUBE Q4H PRN PRN Reason: Pain Albuterol/Ipratropium (Duoneb) 3 ml NEB [id number] PRN PRN Reason: SOB &/or Wheezing Lipase/Protease/Amylase ([place] [id number]) 1 cap PER TUBE ASDIR PRN PRN Reason: TUBE OCCLUSION [place] Last Admin: 07/12/18 10:35 Dose: 1 cap Bisacodyl (Dulcolax) 10 mg PO DAILYPRN PRN PRN Reason: Constipation Calcium Carbonate (Tums) 1,000 mg PO Q4H PRN PRN Reason: Heartburn or Indigestion Clonidine (Catapres) 0.1 mg PER TUBE Q6HR PRN PRN Reason: Hypertension Dextrose/Water (Dextrose 50%) 25 gm SLOW IVP PRN PRN PRN Reason: Hypoglycemia Doxycycline Hyclate (Vibramycin) 100 mg PER TUBE Q12H [facility] Last Admin: 07/14/18 09:38 Dose: 100 mg Enoxaparin Sodium (Lovenox) 30 mg SC 0900 [facility] Last Admin: 07/14/18 07:42 Dose: 30 mg Famotidine (Pepcid) 20 mg PER TUBE BID [facility] Last Admin: 07/14/18 07:45 Dose: 20 mg Ferrous Sulfate (Ferrous Sulfate) 300 mg PER TUBE DAILY [facility] Last Admin: 07/14/18 09:38 Dose: 300 mg Folic Acid (Folvite) 1 mg PER TUBE DAILY [facility] Last Admin: 07/14/18 07:45 Dose: 1 mg Glucagon (Glucagon) 1 mg IM PRN PRN PRN Reason: Hypoglycemia Guaifenesin (Robitussin Sf) 600 mg PER TUBE BID [facility] Last Admin: 07/14/18 09:39 Dose: 600 mg Hydralazine HCl (Apresoline) 50 mg PER TUBE TID [facility] Last Admin: 07/14/18 14:18 Dose: 50 mg Hydralazine HCl (Apresoline) 10 mg SLOW IVP Q4H PRN PRN Reason: SBP Greater Than 180 Dextrose/Water (D5w) 1,000 mls @ 0 mls/hr IV .Q0M PRN PRN Reason: Hypoglycemia Cefepime HCl 1 gm/ Sodium (Chloride) 100 mls @ 200 mls/hr IVPB Q12H [facility] Last Admin: 07/14/18 09:38 Dose: 100 mls Insulin Human Lispro (Humalog) 0 units SC .MODERATE SLIDING SC PRN PRN Reason: Moderate Correctional Scale Insulin Human Lispro (Humalog) 0 units SC .BEDTIME SLIDING SC PRN PRN Reason: Bedtime Correctional Scale Levetiracetam (Keppra Oral Solution) 500 mg PER TUBE BID [facility] Last Admin: 07/14/18 07:46 Dose: 500 mg Lisinopril (Zestril) 20 mg PER TUBE DAILY [facility] Last Admin: 07/14/18 07:45 Dose: 20 mg Methylprednisolone Sodium Succinate (Solu-Medrol) 20 mg IVP Q8HR [facility] Last Admin: 07/14/18 14:17 Dose: 20 mg Polyethylene Glycol (Miralax) 17 gm PER TUBE DAILY [facility] Last Admin: 07/14/18 07:42 Dose: Not Given Saccharomyces Boulardii (Florastor) 250 mg PER TUBE DAILY [facility] Last Admin: 07/14/18 07:45 Dose: 250 mg Senna/Docusate Sodium (Senokot S) 2 tab PO BIDPRN PRN PRN Reason: Constipation Sodium Bicarbonate (Bicarbonate, Sodium) 650 mg PER TUBE ASDIR PRN PRN Reason: TUBE OCCLUSION [place] Last Admin: 07/12/18 10:35 Dose: 650 mg Sodium Chloride (Flush - Normal Saline) 10 ml IVF Q12HR [facility] Last Admin: 07/14/18 07:46 Dose: 10 ml Sodium Chloride (Flush - Normal Saline) 10 ml IVF PRN PRN PRN Reason: Saline Flush Tamsulosin HCl (Flomax) 0.4 mg PO BID [facility] Last Admin: 07/14/18 07:45 Dose: 0.4 mg
[2018-07-14] MEDS: predniSONE 20 MG TAB PER TUBE SCH (17:56)
[2018-07-15] MEDS: Diabetic Tussin 200 MG/10 ML UDCUP PER TUBE SCH (09:43)
[2018-07-15] MEDS: Doxycycline 100 MG CAP PER TUBE SCH (09:43)
[2018-07-15] MEDS: predniSONE 20 MG TAB PER TUBE SCH ×2 (09:44→16:53)
[2018-07-15] MEDS: Enoxaparin Sodium 30 MG/0.3 ML SYRINGE SC SCH (09:44)
[2018-07-15] MEDS: hydrALAZINE 25 MG TAB PER TUBE SCH ×2 (09:44→14:43)
[2018-07-15] MEDS: Polyethylene Glycol 3350 17 GM Packet PER TUBE SCH (09:44)
[2018-07-15] MEDS: Famotidine 20 MG TAB PER TUBE SCH (09:44)
[2018-07-15] MEDS: Folic Acid 1 MG TAB PER TUBE SCH (09:45)
[2018-07-15] MEDS: levETIRAcetam 500 mg/5 ml Oral Solution PER TUBE SCH (09:45)
[2018-07-15] MEDS: Tamsulosin HCl 0.4 MG CAP PO SCH (09:45)
[2018-07-15] MEDS: Saccharomyces boulardii 250 MG CAP PER TUBE SCH (09:45)
[2018-07-15] MEDS: Lisinopril 20 MG TAB PER TUBE SCH (09:45)
[2018-07-15] MEDS: Cefepime 1 GM in Sodium Chloride 0.9% 100 ML IVPB SCH (09:49)
[2018-07-15 14:43] VITALS: BP 177/94
[2018-07-15 14:44] VITALS: TEMP 97.6
--- NOTE | 2018-07-16 11:10 | DIS ---
DATE OF ADMISSION: 07/11/2018 DATE OF DISCHARGE: 07/15/2018 DISCHARGE DISPOSITION: [facility]. ALLERGIES: NO KNOWN DRUG ALLERGIES. THE PATIENT WAS SEEN AND EXAMINED ON THE DAY OF DISCHARGE. DENIES ANY NEW COMPLAINTS. SHORTNESS OF BREATH HAD SIGNIFICANTLY IMPROVED. DISCHARGE MEDICATIONS: 1. Prednisone taper. 2. Doxycycline 100 mg b.i.d. for 5 days. 3. All other home medications were left unchanged study. BRIEF HOSPITAL COURSE: The patient is a 57-year-old male with COPD and recent pneumonia, treated with Levaquin, presented to the hospital with shortness of breath. Please refer to the history and physical dated July 11, 2018, by Dr. Benz, for further details. The patient was admitted to the hospital with a diagnosis of acute hypoxic and hypercapnic respiratory failure. He was placed on noninvasive positive-pressure ventilation transiently in the emergency room. His ABG showed pH of 7.35 with pCO2 of 52.4, pO2 of 84.6 with bicarbonate 28.5. He was started on IV cefepime along with doxycycline and IV steroids. He showed good improvement on the above treatment. He kept refusing the nebulizer treatment per respiratory therapist. He appears stable for discharge. FINAL DIAGNOSES: 1. Acute hypoxic and hypercapnic respiratory failure secondary to chronic obstructive pulmonary disease exacerbation. 2. Recent pneumonia, completed 10-day course of Levaquin, suspected pneumococcal. 3. Chronic abnormal LFTs. 4. Moderate protein-calorie malnutrition. 5. Chronic anemia. 6. Hypertension. 7. Swallow dysfunction, currently on PEG tube feeding. 8. Functional quadriplegia. 9. Seizure disorder. 10. Benign prostatic hypertrophy. PLAN: Plan of care was discussed with the patient in detail, he stated understanding. TIME SPENT: Total time coordinating the discharge of this patient was 33 minutes. Job ID: [id number]
== END 2018-07-15 16:59 | DRG 189 ==
LOC: ERS 20:14 → 2SW 23:05 → T4-A 07-12 11:31
PROVIDERS: ADMIT Internal Medicine; ATTEND Internal Medicine
DX: J96.01 Acute respiratory failure with hypoxia (principal); R53.2 Functional quadriplegia; E44.0 Moderate protein-calorie malnutrition; Z68.1 Body mass index [BMI] 19.9 or less, adult; J96.02 Acute respiratory failure with hypercapnia; I10 Essential (primary) hypertension; G40.909 Epilepsy, unspecified, not intractable, without status epilepticus; Z93.1 Gastrostomy status; D64.9 Anemia, unspecified
CPT/HCPCS: 36415; 36416; 71045; 80048; 80053; 81003; 82805; 83605; 83735; 83880; 84100; 84484; 85025; 87040; 87086; 87149; 93005; 94640; 94660; G8996-GN-CN; G8997-GN-CN; J0692; J1100; J1650; J1953; J2920; J2930; J7050; J7506; J7620; S0028